=== PATIENT | female | born 1955 | race Caucasian/White ===

== ENCOUNTER 2023-03-23 10:25 | Outpatient (OUT) | payer MEDICARE, OTHER, SELFPAY ==
--- NOTE | 2023-03-23 10:37 | XR_ITS ---
[address] [address] Patient Name: LIONEL STRONG MRN: [id number] date: 1955 Sex: F Assigned Patient Location: RAD Current Patient Location: RAD Accession/Order Number: [id number] Exam Date: 03/23/2023 10:45 Report Date: 03/23/2023 11:08 At the request of: PRACHI GIBSON Procedure: XR DEXA axial skeleton EXAMINATION: XR DEXA axial skeleton HISTORY: Ovarian Failure E28.39 COMPARISON: DEXA bone densitometry 07/04/2012 TECHNIQUE: Dual-energy X-ray absorptiometry (DXA) was performed. FINDINGS: SPINE ANALYSIS: Average bone mineral density is 1.109 g/cm2. T-score (standard deviation relative to young adult mean): -0.6 . -11.3% change since prior study. HIP ANALYSIS: Lowest bone mineral density is within the left femoral neck, 0.593 g/cm2. T-score (standard deviation relative to young adult mean): -3.2 . -18.9% change since prior study. XR/XR DEXA axial skeleton IMPRESSION: [employer] Organization Classification: Osteoporosis - High Fracture Risk Electronically authenticated by: HARPER NAVARRETE Date: 03/23/2023 11:08
== END 2023-03-23 10:26 | disposition home or self-care (01) ==
LOC: RAD 10:29
PROVIDERS: Family Provider Obstetrics & Gynecology; PCP Family Medicine; Visit Provider Nurse Practitioner
DX: E28.39 Other primary ovarian failure (principal); M81.0 Age-related osteoporosis without current pathological fracture
CPT/HCPCS: 77080

== ENCOUNTER 2024-10-04 10:22 | Outpatient (OUT) | payer OTHER, SELFPAY ==
--- OUTSIDE RECORDS SUMMARY | 2024-10-04 10:27 | XMS_ITS | Encounter Summary ---
Author Organization [facility] Address [address] [place] [address] Care Team Providers Care Desktop Publishing Operator Name Role Phone Jeffrey Montes De Oca MD Primary Care Provider Elena Salter MD Unavailable [phone] Encounter Details Date Type Department Care Team (Latest Contact Info) Description 09/29/2024 Travel Social History Tobacco Use Types Packs/Day Years Used Date Smoking Tobacco: Never Smokeless Tobacco: Never Alcohol Use Standard Drinks/Week Comments Yes 0 (1 standard drink = 0.6 oz pur e alcohol) AUDIT-C Answer Date Recorded Q1: How often do you have a drink containing alc ohol? Monthly or less 02/20/2023 Average Number of Drinks Not on file 023 Frequency of Binge Drinking Not on file 02/01 Comments Unknown Sex and Gender Information Value Date Recorded Sex Assigned at Not on file Legal Sex Female 7:05 PM EDT Gender Identity Not on file Sexual Orientation Not on file documented as of this encounter Plan of Treatment Upcoming Encounters Date Type Department Care Team (Late st Contact Info) Description 10/06/2024 8:45 AM EDT Office Visit [facility] [address] [address] Jordi Rodriguez PA [address] [facility] [address] [place] [address] 02/26/2025 9:00 AM EDT Office Visit [facility] [address] [place] [address] Jr. Harley Coles, DO [address] [place] [address] documented as of this encounter Visit Diagnoses Not on filedocumented in this encounter Care Teams Desktop Publishing Operator Relationship Specialty Start Date End Date Jeffrey Montes De Oca MD PCP - General Family Medicine 02/22/23 Elena Salter MD [address] [place] [address] PCP - [facility]oted 06/03/23 documented as of this encounter
--- OUTSIDE RECORDS SUMMARY | 2024-10-04 10:27 | XMS_ITS | Clinical Summary ---
Author Organization [facility] Address [address] [place] [address] Care Team Providers Care Community Relations Manager Name Role Phone Jeffrey Montes De Oca MD Primary Care Provider [phone] Elena Salter MD Unavailable [phone] Allergies No known active allergies Medications escitalopram (Lexapro) 10 MG tablet Take 10 mg by mouth in the morning. Active naproxen sodium (Aleve) 220 MG tablet Take 1 tablet as needed by oral route for 90 days. Active alendronate (Fosamax) 70 MG tablet 04/09/2023 Active acetaminophen (Tylenol 8 Hour) 650 MG ER tablet Take 650 mg by mouth every 8 (eight) hours if needed for mild pain Do not crush, chew, or split. Active Active Problems No known active problems Encounters Date Type Department Care Team Description 09/29/2024 Travel from Last 3 Months Family History Medical History Relation Name Comments Heart disease Father Hypertension Father Heart disease Mother Hypotension Mother Stroke Mother Relation Name Status Comments Father Mother Social History Tobacco Use Types Packs/Day Years Used Date Smoking Tobacco: Never Smokeless Tobacco: Never Tobacco Cessation:Counseling Given: Not Answered Alcohol Use Standard Drinks/Week Comments Yes 0 (1 standard drink = 0.6 oz pur e alcohol) AUDIT-C Answer Date Recorded Q1: How often do you have a drink containing alc ohol? Monthly or less 02/20/2023 Average Number of Drinks Not on file 023 Frequency of Binge Drinking Not on file 10/2 05/2022 Comments Unknown Sex and Gender Information Value Date Recorded Sex Assigned at Not on file Legal Sex Female 7:05 PM EDT Gender Identity Not on file Sexual Orientation Not on file Last Filed Vital Signs Vital Sign Reading Time Taken Comments Blood Pressure - - Pulse - - Temperature - - Respiratory Rate - - Oxygen Saturation - - Inhaled Oxygen Concentration - - Weight 80.7 kg (178 lb) 12/27/2023 9:56 AM EDT Height 162.6 cm (5' 4 ) 12/27/2023 9:56 AM EDT Body Mass Index 30.55 12/27/2023 9:56 AM EDT Plan of Treatment Upcoming Encounters Date Type Department Care Team (Late st Contact Info) Description 10/06/2024 8:45 AM EDT Office Visit [facility] [address] [place] [phone] Jordi Rodriguez, PA [address] [facility] [address] [place] [address] 02/26/2025 9:00 AM EDT Office Visit [facility] [address] [facility] [address] [place] [phone] Jr. Harley Coles, 112 [facility] [address] [place] [address] Health Maintenance Due Date Last Done Comments CT Colonography 1955 FIT-DNA 1955 FIT 1955 FOBT 1955 Medicare Annual Wellness (AWV) 1955 Sigmoidoscopy 1955 Mammogram 1995 Colonoscopy 07/25/2022 07/25/2012 Colorectal Cancer Screening 07/25/2022 Pneumococcal Vaccine: 65+ Years Completed , 01/08/2021 Influenza Vaccine Completed 01/25/2024, , 01/06/2022, Additional history exists Insurance [employer] Care Teams Community Relations Manager Relationship Specialty Start Date End Date Jeffrey Montes De Oca MD PCP - General Family Medicine 02/22/23 Elena Salter MD [address] [place] [address] PCP - [facility]oted 06/03/23
--- NOTE | 2024-10-04 10:30 | XR_ITS ---
[facility] [place] [id number] Patient Name: LIONEL STRONG MRN: [id number] date: 1955 Sex: F Assigned Patient Location: [facility] Current Patient Location: [facility] Accession/Order Number: [id number] Exam Date: 10/04/2024 11:06 Report Date: 10/04/2024 11:08 At the request of: ROYA JOSEPH Procedure: XR knee RT 2V RIGHT KNEE - 2 views COMPARISON: 07/26/2019 and MRI 01/21/2021 CLINICAL DATA: Right knee pain after squatting a couple weeks ago. Weightbearing AP bilateral and right lateral views were obtained. There is osteopenia. No acute fractures or dislocation are noted. There is narrowing of the medial tibiofemoral joint compartments bilaterally with bone to bone contact and mild genu varum deformity. There is marginal spurring at the tibiofemoral compartments on both sides as well as the patellofemoral compartment on the right. There is a trace amount of joint fluid. No soft tissue swelling is seen. XR/XR knee RT 2V IMPRESSION: DEGENERATIVE CHANGES, DESCRIBED. Impression dictated by: Tamra Khalil M.D. 10/04/2024 11:08 AM Dictation Location: [place] [address] Electronically authenticated by: [id number] Y Date: 10/04/2024 11:08
--- OUTSIDE RECORDS SUMMARY | 2024-10-04 10:45 | XMS_ITS | CCD ---
Author Organization [facility] Care Team Providers Care Hot Man Name Role Phone Fatoumata Dougherty Unavailable ELISA ., DR MANDY Armando Admitting Unavailable ELISA ., DR MANDY Armando Attending Unavailable PÉREZ ., DR MANDY Armando Primary Care Unavailable PÉREZ ., DR MANDY Armando Consulting Unavailable ANTHONY, DR WES Perez Consulting Unavailable CELINE ., DR KHAN Consulting Unavailable Leonie Nieves Primary Care Physician [phone] Claudia Daniel Unavailable Jeffrey Montes De Oca MD Primary Care Provider Elena Salter MD Unavailable [phone] ROYA RODRIGUEZ Attending Unavailable ROYA RODRIGUEZ Referring Unavailable ROYA RODRIGUEZ Referring Unavailable ROYA RODRIGUEZ Attending Unavailable ROYA RODRIGUEZ Attending Unavailable ROAY RODRIGUEZ Attending Unavailable Lizbeth, CARI Tate Attending Unavailable Lizbeth, CREOSOTING ENGINEERShady Tate Attending Unavailable Lizbeth, CREOSOTING ENGINEERShady Tate Attending Unavailable Allergies Allergy Classification Reported Allergen(s) Allergy Type Date of Onset Reaction(s) Facility (2 sources) Budesonide / formoterol; Translations: [budesonide-form oterol] Drug Allergy Unknown (qualifier value) [facility] (2 sources) diphenhydrAMINE; Translations: [diphenhydramine ] Drug Allergy Unknown (qualifier value) [facility] (2 sources) HYDROcodone; Translations: [hydrocodone] Drug Allergy Unknown (qualifier value) [facility] Medications Current Medications Medication Drug Class(es) Dates Sig (Normalized) Sig (Original) 8 hr acetaminophen 650 mg extended release oral tablet (10 sources) take 1 tablet by mouth every eight hours as needed for pain acetaminophen (Tylenol 8 Hour) 650 MG ER tablet Take 650 mg by mouth every 8 (eight) hours if needed for mild pain Do not crush, chew, or split. Active alendronic acid 70 mg oral tablet (12 sources) Bisphosphonate Start: 04-09-2023 alendronate (Fosamax) 70 MG tablet 04/09/2023 Active Alendronate Sodi um Active ciprofloxacin 0.003 mg/mg ophthalmic ointment (2 sources) Quinolone Antimicrobial Start: 05-19-2023 Ciloxan 0.3 % 1 application into the lower eyelid of affected eye right eye Twice a day for 7 days May, Active escitalopram 10 mg oral tablet (12 sources) Serotonin Reuptake Inhibitor Start: 02-17-2023 take 1 tablet by mouth once daily escitalopram 10 mg Tab 10 mg = 1 tab(s), Oral, Daily, # 90 tab(s), Refills(s) 3, Pharmacy: [id number], 66.9, cm, 12/29/22 9:58:00 EDT, Height/Length Dosing, 79, kg, 12/29/22 9:58:00 EDT, Weight Dosing Start Date: 02/17/23 Status: Ordered multivitamin with minerals (1 source) Start: 09-07-2022 multivitamin with minerals Refill(s) 0 Start Date: 09/07/22 Status: Ordered naproxen sodium 220 mg oral tablet (14 sources) Nonsteroidal Anti-inflammatory Drug naproxen sodium (Aleve) 220 MG tablet Take 1 tablet as needed by oral route for 90 days. Active Completed/Discontinued Medications Medication Drug Class(es) Dates Sig (Normalized) Sig (Original) amoxicillin 875 mg / clavulanate 125 mg oral tablet (3 sources) Penicillin-class Antibacterial Start: 07-17-2022 take 1 tablet by mouth every twelve hours Amoxicillin-Pot Clavulanate 875-125 MG 1 tablet Orally every 12 hrs for 10 day(s) Jul, Not-Taking/PRN benzonatate 200 mg oral capsule (3 sources) Non-narcotic Antitussive Start: 07-17-2022 take 1 capsule by mouth every eight hours Benzonatate 200 MG 1 capsule Orally Three times a day for 10 days prn cough Jul, Not-Taking/PRN 5 ml bupivacaine hydrochloride 5 mg/ml injection (4 sources) Amide Local Anesthetic Start: 01-13-2024 End: 01-13-2024 bupivacaine PF (Marcaine) 0.5 % injection 1 mL Start: 01-13-2024 End: 01-13-2024 1 mL, Injection, Once PRN Pr ocedure, Starting on Candy 01/13/24 at 1422, For 1 dose 1 ml methylPREDNISolone acetate 40 mg/ml injection (19 sources) Corticosteroid Start: 05-08-2024 End: 05-08-2024 methylPREDNISolone acetate (DEPO-Medrol) injection 40 mg Start: 05-08-2024 End: 05-08-2024 40 mg, Intra-articular, Once PRN Procedure, Starting on Wed05/08/24 at 0922, For 1 dose Start: 05-01-2024 End: 05-01-2024 methylPREDNISolone acetate ( DEPO-Medrol) injection 40 mg Start: 05-01-2024 End: 05-01-2024 40 mg, Intra-articular, Once PRN Procedure, Starting on Wed05/01/24 at 0859, For 1 dose Start: 01-13-2024 End: 01-13-2024 methylPREDNISolone acetate ( DEPO-Medrol) injection 40 mg Start: 01-13-2024 End: 01-13-2024 40 mg, Intra-articular, Once PRN Procedure, Starting on Wed01/13/24 at 1422, For 1 dose Start: 12-27-2023 End: 12-27-2023 methylPREDNISolone acetate ( DEPO-Medrol) injection 40 mg Start: 12-27-2023 End: 12-27-2023 40 mg, Intra-articular, Once PRN Procedure, Starting on Wed12/27/23 at 1024, For 1 dose Start: 07-17-2022 Medrol 4 MG as directed Orally as directed for 6 days Jul, Not-Taking/PRN Problems Active Problems Problem Classification Problem Date Documented Da te Episodic/Chronic Anxiety disorders (2 sources) Anxiety; Translations: [Mixed anxiety and depressive disorder] 12-01-2022 Chronic Inflammation; infection of eye (except that caused by tuberculosis or sexually transmitteddisease) (1 source) Hordeolum internum right lower eyelid Episodic Joint disorders and dislocations; trauma-related (1 source) Derangement of knee 07-16-2022 Chronic Osteoarthritis (12 sources) Arthritis of left knee; Translations: [Unilateral primary osteoarthritis, left knee] 01-13-2024 Chronic Other diseases of kidney and ureters (1 source) Cyst of kidney 09-04-2022 Episodic Other diseases of veins and lymphatics (1 source) Lymphedema 09-04-2022 Chronic Comment on above: secondary to lymph n nodes in groin 2018 Other non-traumatic joint disorders (2 sources) Arthritis of right knee 05-08-2024 Chronic Other non-traumatic joint disorders (10 sources) Pain in left knee; Translations: [Pain in joint, lower leg] 01-13-2024 Episodic Other nutritional; endocrine; and metabolic disorders (1 source) Overweight in adulthood with body mass index of 25 or more but less than 30 09-07-2022 Episodic Other screening for suspected conditions (not mental disorders or infectious disease) (4 sources) Encounter for screening mammogram for malignant neoplasm of breast; Translations: [ENC SCR MAMMO MALIG NEOPLASM BREAST] Onset: 08-17-2022 Episodic Other upper respiratory infections (1 source) Acute sinusitis, unspecified Episodic Residual codes; unclassified (1 source) Family history of malignant neoplasm of breast; Translations: [FAMILY HX MALIG NEOPLASM OF BREAST] Onset: 08-23-2022 Episodic Residual codes; unclassified (1 source) Family history of malignant neoplasm of other organs or systems; Translations: [FAM HX MALIG NEOPLASM OTH ORGN/SYS] Onset: 08-23-2022 Episodic Residual codes; unclassified (1 source) Insomnia 12-01-2022 Episodic Unclassified (1 source) Non-smoker 09-07-2022 Unclassified (2 sources) Acute pain of left knee 05-01-2024 Past or Other Problems Problem Classification Problem Date Documented Da te Episodic/Chronic Calculus of urinary tract (1 source) Kidney stone Onset: 10-31-2020 07-16-2022 Episodic Results Test Name Value Interpretation Reference Range Facility Ambulatory Visit Summaryon 0 09-28-2024 Ambulatory Visit Summary Ambulatory Visit Summary LIONEL SMITH :1955 Visit Date:09/28/2024 Ambulatory Visit Instructions Your Diagnosis Generalized anxiety disorder Mild recurrent major depression BMI 33.0-33.9,adult Non-smoker Your Care Team Attending Physician - Leonie Kaplan Primary Care Physician - Leonie Kaplan This Is Your Medications List alendronate (alendronate 70 mg Tab) alprazolam (Xanax 0.25 mg Tab) busPIRone (busPIRone 10 mg Tab) escitalopram (escitalopram 10 mg Tab) multivitamin with minerals phentermine (Adipex-P 37.5 mg Tab) Procedures Performed Cholecystectomy, Surgery. Discharge Vitals Heart Rate (Peripheral) 80 Respiratory Rate 76 Blood Pressure 136/73 Height 163.0 cm Height 64 in Weight 88.30 kg Weight 194.668 lb BMI 33.23 What to do next Scheduled Follow-Up Appointments 2024 1:20 PM EDT With: Leonie Kaplan Where: [address] [address]- Medications What How Much When Why Instructions New busPIRone (busPIRone 10 mg Tab) 1 Tablets By Mouth 3 times a day as needed for Anxiety Generalized anxiety disorder Mild recurrent major depression BMI 33.0-33.9,adult Non-smoker Pickup at [facility]28 New phentermine (Adipex-P 37.5 mg Tab) 1 Tablets By Mouth Every day Generalized anxiety disorder Mild recurrent major depression BMI 33.0-33.9,adult Non-smoker Pickup at [facility]28 Unchanged alendronate (alendronate 70 mg Tab) See instructions Take 1 tablet by mouth once a week Unchanged alprazolam (Xanax 0.25 mg Tab) 1 Tablets By Mouth At bedtime Anxiety and depression Insomnia Unchanged escitalopram (escitalopram 10 mg Tab) 1 Tablets By Mouth Every day Anxiety and depression Insomnia BMI 29.0-29.9,adult Non-smoker Situational anxiety Unchanged multivitamin with minerals Pharmacy Information [facility]: [address] [phone] Allergies Benadryl (Unknown) HYDROcodone (Unknown) Symbicort (Unknown) Problems Ongoing - Any problem that you are currently receiving treatment for. Anxiety and depression BMI 29.0-29.9,adult Derangement of knee Generalized anxiety disorder Insomnia Jaw pain Lymphedema Major depressive disorder, recurrent episode, moderate Mild recurrent major depression Nephrolithiasis Non-smoker Osteoporosis Renal cyst Shingles Sinusitis Situational anxiety Synovial cyst Patient Survey You may receive a survey via text or e-mail asking about your office visit. Please share your experience with us by completing your survey. We appreciate your feedback and thank you for choosing us for your care. [facility] Family Medicine Office/Clini c Noteon 09-28-2024 Family Medicine Office/Clinic Note Family Medicine Office/Clinic Note HPI Staff Please speak with patient about scheduling an AWVFanta Santos is a 69 year old female presenting for medication refills Follow up for Mental Status: Medication adherence- Yes, takes medication as prescribed Medication refill needed: _ Suicidal thoughts-Not at this time Medication Consent: due Drug screen: due Most recent ZEUS: 14 Most recent PHQ: Dexa: 05/23/22, pt feels her xanax isn't enough anymore, worries often and is on high alert due to having brain cancer. Pt would like to discuss her weight she feels she has gained 25 pounds over the last 3 years. History of Present Illness pt presents today for follow up on worsening anxiety and depression Review of Systems PHQ Score Initial Depression Screen Score: 2 SCORE Physical Exam Vitals & Measurements HR: 80(Peripheral) RR: 76 BP: 136/73 SpO2: 99% HT: 163.0 cm HT: 64 in WT: 194.668 lb WT: 88.30 kg BMI: 33.23 General: alert, no acute distress ENMT: oral mucosa moist, no pharyngeal erythema or exudate Cardiovascular: regular rate and rhythm, normal peripheral perfusion Respiratory: Lungs CTA, respirations non labored Extremities: no deformity, no trauma Neurological: oriented x 4, LOC appropriate for age, CN II-XII intact, motor strength equal & normal bilaterally, speech normal Assessment/Plan 1. Generalized anxiety disorder (F41.1: Generalized anxiety disorder) pt presents today for worsening anxiety and depression. her has brain cancer and she is really struggling with all of the emotions she is dealing with. will increase Lexapro to 20mg and will send in BuSpar for her to use as needed. she did not like how xanax made her feel. she will take 2 of the 10mg tabs since she just picked up 90 10mg tabs. when needing a refill will send in 20mg tabs. RTC 4 weeks for follwoup Ordered: busPIRone, 10 mg = 1 tab(s), Oral, TID, PRN Anxiety, # 30 tab(s), Refills(s) 0, Pharmacy: [facility], 163, cm, 09/28/24 13:00:00 EDT, Height/Length Dosing, 88.3, kg, 09/28/24 13:00:00 EDT, Weight Dosing phentermine, 37.5 mg = 1 tab(s), Oral, Daily, # 30 tab(s), Refills(s) 0, Pharmacy: [facility], 163, cm, 09/28/24 13:00:00 EDT, Height/Length Dosing, 88.3, kg, 09/28/24 13:00:00 EDT, Weight Dosing 2. Mild recurrent major depression (F33.0: Major depressive disorder, recurrent, mild) deferred PQH-9 due to situation. Ordered: busPIRone, 10 mg = 1 tab(s), Oral, TID, PRN Anxiety, # 30 tab(s), Refills(s) 0, Pharmacy: [facility], 163, cm, 09/28/24 13:00:00 EDT, Height/Length Dosing, 88.3, kg, 09/28/24 13:00:00 EDT, Weight Dosing phentermine, 37.5 mg = 1 tab(s), Oral, Daily, # 30 tab(s), Refills(s) 0, Pharmacy: [facility], 163, cm, 09/28/24 13:00:00 EDT, Height/Length Dosing, 88.3, kg, 09/28/24 13:00:00 EDT, Weight Dosing 3. BMI 33.0-33.9,adult (Z68.33: Body mass index [BMI] 33.0-33.9, adult) BMI education. will start Adipex-P. medication agreement signed. OARRS report reviewed. RTC 4 weeks for weight check Ordered: busPIRone, 10 mg = 1 tab(s), Oral, TID, PRN Anxiety, # 30 tab(s), Refills(s) 0, Pharmacy: [facility], 163, cm, 09/28/24 13:00:00 EDT, Height/Length Dosing, 88.3, kg, 09/28/24 13:00:00 EDT, Weight Dosing phentermine, 37.5 mg = 1 tab(s), Oral, Daily, # 30 tab(s), Refills(s) 0, Pharmacy: [facility], 163, cm, 09/28/24 13:00:00 EDT, Height/Length Dosing, 88.3, kg, 09/28/24 13:00:00 EDT, Weight Dosing 4. Non-smoker (Z78.9: Other specified health status) continue not smoking Ordered: busPIRone, 10 mg = 1 tab(s), Oral, TID, PRN Anxiety, # 30 tab(s), Refills(s) 0, Pharmacy: [facility], 163, cm, 09/28/24 13:00:00 EDT, Height/Length Dosing, 88.3, kg, 09/28/24 13:00:00 EDT, Weight Dosing escitalopram, 20 mg = 2 tab(s), Oral, Daily, increase dose to 20mg, # 90 tab(s), Refills(s) 4, Pharmacy: [facility], 163, cm, 07/05/23 11:41:00 EST, Height/Length Dosing, 81.1, kg, 07/05/23 11:41:00 EST, Weight Dosing mupirocin topical, 1 rebecca, Topical, TID, 30 gram, Refill(s) 0, [facility]/pharmacy #[id number], 163, cm, 02/14/24 8:29:00 EDT, Height/Length Dosing, 85.9, kg, 02/14/24 8:29:00 EDT, Weight Dosing phentermine, 37.5 mg = 1 tab(s), Oral, Daily, # 30 tab(s), Refills(s) 0, Pharmacy: [facility], 163, cm, 09/28/24 13:00:00 EDT, Height/Length Dosing, 88.3, kg, 09/28/24 13:00:00 EDT, Weight Dosing Follow-up No qualifying data available Problem List/Past Medical History Ongoing Anxiety and depression BMI 29.0-29.9,adult Derangement of knee Generalized anxiety disorder Insomnia Jaw pain Lymphedema Major depressive disorder, recurrent episode, moderate Mild recurrent major depression Nephrolithiasis Non-smoker Osteoporosis Renal cyst Shingles Sinusitis Situational anxiety Synovial cyst Historical No qualifying data Procedure/Surgical History Cholecystectomy, Surgery. Medications Adipex-P 37.5 mg Tab, 37.5 m (more content not included)... [facility] Comment on above: Result Comment: Elec tronically Signed By: Leonie Kaplan\.br\Date and Time Signed: 09/28/24 14:14 EDT No Panel Informationon 05-08 JAKE Camacho 05/08/2024 9:24 AM L Inj/Asp: R knee on 05/08/2024 9:22 AM Indications: pain Details: 22 G needle, anterolateral approach Medications: 40 mg methylPREDNISolone acetate 40 MG/ML Outcome: tolerated well, no immediate complications E UTILIZING ASEPTIC TECHNIQUE PT GIVEN INJECTION IN RIGHT KNEE, NEUROVASC INTACT S/P INJ, TOLERATED WELL Procedure, treatment alternatives, risks and benefits explained, specific risks discussed. Consent was given by the patient. [facility] No Panel Informationon 05-01 JAKE Camacho 05/01/2024 9:01 AM L Inj/Asp: L knee on 05/01/2024 8:59 AM Indications: pain Details: 22 G needle, anterolateral approach Medications: 40 mg methylPREDNISolone acetate 40 MG/ML Outcome: tolerated well, no immediate complications UTILIZING ASEPTIC TECHNIQUE PT GIVEN INJECTION IN LEFT KNEE, NEUROVASC INTACT S/P INJ, TOLERATED WELL Procedure, treatment alternatives, risks and benefits explained, specific risks discussed. Consent was given by the patient. Patient was prepped and draped in the usual sterile fashion. [facility] Ambulatory Visit Summaryon 1 Ambulatory Visit Summary Ambulatory Visit Summary LIONEL SMITH :1955 Visit Date:02/14/2024 Ambulatory Visit Instructions Your Diagnosis Shingles Jaw pain BMI 32.0-32.9,adult Non-smoker Your Care Team Attending Physician - Leonie Kaplan Primary Care Physician - Leonie Kaplan This Is Your Medications List alendronate (Fosamax 70 mg Tab) escitalopram (escitalopram 10 mg Tab) multivitamin with minerals Procedures Performed Cholecystectomy, Surgery. Discharge Vitals Heart Rate (Peripheral) 66 Respiratory Rate 16 Blood Pressure 160/92 Height 163 cm Height 64 in Weight 85.9 kg Weight 188.98 lb BMI 32.33 Medications What How Much When Why Instructions Unchanged alendronate (Fosamax 70 mg Tab) 1 Tablets By Mouth Every 7 days Osteoporosis Unchanged escitalopram (escitalopram 10 mg Tab) 1 Tablets By Mouth Every day Anxiety and depression Insomnia BMI 29.0-29.9,adult Non-smoker Situational anxiety Unchanged multivitamin with minerals Allergies Benadryl (Unknown) HYDROcodone (Unknown) Symbicort (Unknown) Problems Ongoing - Any problem that you are currently receiving treatment for. Anxiety and depression BMI 29.0-29.9,adult Derangement of knee Insomnia Jaw pain Lymphedema Major depressive disorder, recurrent episode, moderate Nephrolithiasis Non-smoker Osteoporosis Renal cyst Shingles Sinusitis Situational anxiety Synovial cyst Patient Survey You may receive a survey via text or e-mail asking about your office visit. Please share your experience with us by completing your survey. We appreciate your feedback and thank you for choosing us for your care. [facility] Family Medicine Office/Clini c Noteon 02-14-2024 Family Medicine Office/Clinic Note Family Medicine Office/Clinic Note Chief Complaint swelling in jaw HPI Staff complaints of swelling infection on left jaw, lip, upper jaw Onset: 02/12/24 Characteristics: painful, under stress, started small on the chin, started to leak puss last night, also had this happen to her 7 years ago when mother OTC tried: Neosporin antibiotic, History of Present Illness pt presents today with pain left jaw, lip Review of Systems PHQ Score Initial Depression Screen Score: 1 SCORE Physical Exam Vitals & Measurements HR: 66(Peripheral) RR: 16 BP: 160/92 HT: 64 in HT: 163 cm WT: 85.9 kg WT: 188.98 lb BMI: 32.33 General: alert, no acute distress ENMT: oral mucosa moist, no pharyngeal erythema or exudate Cardiovascular: regular rate and rhythm, normal peripheral perfusion Respiratory: Lungs CTA, respirations non labored Extremities: no deformity, no trauma Neurological: oriented x 4, LOC appropriate for age, CN II-XII intact, motor strength equal & normal bilaterally, speech normal Assessment/Plan 1. Shingles (B02.9: Zoster without complications) pt started with a cold sore on lip. now has red swollen area on left lower jaw and open sores that are oozing and painful. will treat for shingles and infection. pt is under a great deal of stress. recently found out her has brain cancer. Ordered: clindamycin, 300 mg = 1 cap(s), Oral, q6hr, X 7 day(s), # 28 cap(s), Refills(s) 0, Pharmacy: [facility]/pharmacy #[id number], 163, cm, 02/14/24 8:29:00 EDT, Height/Length Dosing, 85.9, kg, 02/14/24 8:29:00 EDT, Weight Dosing mupirocin topical, 1 rebecca, Topical, TID, 30 gram, Refill(s) 0, [id number], 163, cm, 02/14/24 8:29:00 EDT, Height/Length Dosing, 85.9, kg, 02/14/24 8:29:00 EDT, Weight Dosing valacyclovir, 1 gm = 1 tab(s), Oral, q8hr, X 7 day(s), # 21 tab(s), Refills(s) 0, Pharmacy: [facility] #[id number], 163, cm, 02/14/24 8:29:00 EDT, Height/Length Dosing, 85.9, kg, 02/14/24 8:29:00 EDT, Weight Dosing 2. Jaw pain (R68.84: Jaw pain) will treat with antibitoic Ordered: clindamycin, 300 mg = 1 cap(s), Oral, q6hr, X 7 day(s), # 28 cap(s), Refills(s) 0, Pharmacy: [facility] #[id number], 163, cm, 02/14/24 8:29:00 EDT, Height/Length Dosing, 85.9, kg, 02/14/24 8:29:00 EDT, Weight Dosing mupirocin topical, 1 rebecca, Topical, TID, 30 gram, Refill(s) 0, [facility]/pharmacy #[id number], 163, cm, 02/14/24 8:29:00 EDT, Height/Length Dosing, 85.9, kg, 02/14/24 8:29:00 EDT, Weight Dosing valacyclovir, 1 gm = 1 tab(s), Oral, q8hr, X 7 day(s), # 21 tab(s), Refills(s) 0, [id number] 163, cm, 02/14/24 8:29:00 EDT, Height/Length Dosing, 85.9, kg, 02/14/24 8:29:00 EDT, Weight Dosing Body Mass Index (BMI) documented 3008F Current tobacco non-user 1036F Depression Screening Negative 3352F Most recent diastolic blood pressure >=90 mm Hg 3080F Most recent systolic blood pressure >= 140 mm Hg 3077F Patient screen for fall risk: no falls in last year or 1 fall with no injury in last year 1101F 3. BMI 32.0-32.9,adult (Z68.32: Body mass index [BMI] 32.0-32.9, adult) BMI education given Ordered: clindamycin, 300 mg = 1 cap(s), Oral, q6hr, X 7 day(s), # 28 cap(s), Refills(s) 0, Pharmacy: [facility]/pharmacy #[id number], 163, cm, 02/14/24 8:29:00 EDT, Height/Length Dosing, 85.9, kg, 02/14/24 8:29:00 EDT, Weight Dosing mupirocin topical, 1 rebecca, Topical, TID, 30 gram, Refill(s) 0, [id number] 163, cm, 02/14/24 8:29:00 EDT, Height/Length Dosing, 85.9, kg, 02/14/24 8:29:00 EDT, Weight Dosing valacyclovir, 1 gm = 1 tab(s), Oral, q8hr, X 7 day(s), # 21 tab(s), Refills(s) 0, [id number], 163, cm, 02/14/24 8:29:00 EDT, Height/Length Dosing, 85.9, kg, 02/14/24 8:29:00 EDT, Weight Dosing Body Mass Index (BMI) documented 3008F Current tobacco non-user 1036F Depression Screening Negative 3352F Most recent diastolic blood pressure >=90 mm Hg 3080F Most recent systolic blood pressure >= 140 mm Hg 3077F Patient screen for fall risk: no falls in last year or 1 fall with no injury in last year 1101F 4. Non-smoker (Z78.9: Other specified health status) continue not smoking Ordered: amoxicillin, 500 mg = 1 cap(s), Oral, q12hr, # 20 cap(s), Refills(s) 0, Pharmacy: [facility], 163, cm, 07/05/23 11:41:00 EST, Height/Length Dosing, 81.1, kg, 07/05/23 11:41:00 EST, Weight Dosing clindamycin, 300 mg = 1 cap(s), Oral, q6hr, X 7 day(s), # 28 cap(s), Refills(s) 0, [id number], 163, cm, 02/14/24 8:29:00 EDT, Height/Length Dosing, 85.9, kg, 02/14/24 8:29:00 EDT, Weight Dosing mupirocin topical, 1 rebecca, Topical, TID, 30 gram, Refill(s) 0, [id number] 163, cm, 02/14/24 8:29:00 EDT, Height/Length Dosing, 85.9, kg, 02/14/24 8:29:00 EDT, Weight Dosing valacyclovir, 1 gm = 1 tab(s), Oral, q8hr, X 7 day(s), # 21 tab(s), Refills(s) 0, [id number], 163, cm, 02/14/24 8:29:00 EDT, Height/Length Dosing, 85.9, kg, 02/14/24 8:29:00 EDT, Weight Dosing Body Mass Index (BMI) documented 3008F Current tobacco (more content not included)... [facility] Comment on above: Result Comment: Elec tronically Signed By: Lizbeth ALCALA, Leonie Tate\.br\Date and Time Signed: 02/14/24 09:08 EDT No Panel Informationon 01-12 JAKE Camacho 01/13/2024 9:54 PM L Inj/Asp: L knee on 01/13/2024 2:22 PM Indications: pain Details: 22 G needle, anterolateral approach Medications: 40 mg methylPREDNISolone acetate 40 MG/ML; 1 mL bupivacaine PF 0.5 % Outcome: tolerated well, no immediate complications UTILIZING ASEPTIC TECHNIQUE PT GIVEN INJECTION IN LEFT KNEE, NEUROVASC INTACT S/P INJ, TOLERATED WELL Procedure, treatment alternatives, risks and benefits explained, specific risks discussed. Consent was given by the patient. [facility] No Panel Informationon 12-26 JAKE Camacho 12/27/2023 10:26 AM L Inj/Asp: R knee on 12/27/2023 10:24 AM Indications: pain Details: 22 G needle, anterolateral approach Medications: 40 mg methylPREDNISolone acetate 40 MG/ML Outcome: tolerated well, no immediate complications E UTILIZING ASEPTIC TECHNIQUE PT GIVEN INJECTION IN RIGHT KNEE, NEUROVASC INTACT S/P INJ, TOLERATED WELL Procedure, treatment alternatives, risks and benefits explained, specific risks discussed. Consent was given by the patient. [facility] CHEMISTRYOrdered By: SYSTEM SYSTEM on 03-03-2023 Albumin [Mass/Vol] 4.7 g/dL Normal 3.3 - 5.0 gm/dL [facility] Albumin/Globulin [Mass ratio] 1.5 {ratio} Normal 1.1 - 2.2 [facility] ALP [Catalytic activity/Vol] 80 [iU]/d Normal 21 - 98 Int._Unit/L [facility] ALT No additional P-5'-P [Catalytic activity/Vol] 19 [iU]/d Normal 6 - 46 Int._Unit/L [facility] Anion gap [Moles/Vol] 13 mmol/L Normal 6 - 16 mEq/L [facility] AST [Catalytic activity/Vol] 22 [iU]/d Normal 5 - 43 Int._Unit/L [facility] Bilirubin [Mass/Vol] 1.6 mg/dL High 0.0 - 1 .1 mg/dL [facility] Calcium [Mass/Vol] 10.2 mg/dL Normal 8.9 - 11. 1 mg/dL [facility] Chloride [Moles/Vol] 104 mmol/L Normal 101 - 1 11 mmol/L [facility] Cholesterol [Mass/Vol] 225 mg/dL High 120 - 200 mg/dL [facility] Cholesterol in HDL [Mass/Vol] 90 mg/dL Invalid Interpretation Code [facility] Comment on above: Interpretive Data: H DL > or equal to 60 mg/dL: Low cardiovascular risk HDL < 40 mg/dL : High cardiovascular risk Cholesterol in LDL [Mass/Vol] 116 mg/dL Normal <=129mg/dL [facility] Cholesterol in VLDL [Mass/Vol] 13 mg/dL Normal 7 - 40 mg/dL [facility] CO2 [Moles/Vol] 29 mmol/L Normal 21 - 31 mmol/L [facility] Creatinine [Mass/Vol] 0.6 mg/dL Normal 0.5 - 1.3 mg/dL [facility] GFR/1.73 sq M.predicted among non-blacks MDRD (S/P/Bld) [Vol rate/Area] 98 mL/min/1.73 m2 Normal >=59mL/min/1 .73 m2 [facility] Comment on above: Interpretive Data: C hronic kidney disease could be indicated at eGFR's of less than 60 mL/min/1.73m2. Kidney failure is indicated at less than 15 mL/min/1.73m2. Globulin (S) [Mass/Vol] 3.1 g/dL Normal 1.4 - 4.0 gm/dL [facility] Glucose [Mass/Vol] 104 mg/dL Normal 55 - 199 mg/dL [facility] Comment on above: Interpretive Data: I f this glucose result represents a fasting glucose, interpretation should refer to the following reference range: 55-99 mg/dL Potassium [Moles/Vol] 5.1 mmol/L Normal 3.5 - 5.3 mmol/L [facility] Protein [Mass/Vol] 7.8 g/dL Normal 6.0 - 7.8 gm/dL [facility] Sodium [Moles/Vol] 141 mmol/L Normal 135 - 145 mmol/L [facility] Triglyceride [Mass/Vol] 65 mg/dL Normal <=149mg/dL [facility] TSH Qn 1.23 m[IU]/L Normal 0.34 - 5.60 mcIU/mL [facility] Urea nitrogen [Mass/Vol] 9 mg/dL Normal 5 - 21 mg/dL [facility] Urea nitrogen/Creatinine [Mass ratio] 15 mg/mg Normal 10 - 20 [facility] HEMATOLOGYOrdered By: SYSTEM SYSTEM on 03-03-2023 Basophils/100 WBC (Bld) 0.8 % Normal 0.0 - 2.0 % [facility] Basophils/Leukocytes Auto (Bld) [Pure # fraction] 0.0 E9/L Normal 0.0 - 0.2 E9/L [facility]Auto[facility] Eosinophils/100 WBC (Bld) 1.3 % Normal 0.0 - 8.0 % [facility]Auto[facility] Eosinophils/Leukocyte s Auto (Bld) [Pure # fraction] 0.1 E9/L Normal 0.0 - 0.5 E9/L [facility] Lymphocytes/100 WBC (Bld) 35.8 % Normal 14.0 - 50.0 % [facility]eAuto[facility] Lymphocytes/Leukocyte s Auto (Bld) [Pure # fraction] 2.3 E9/L Normal 1.0 - 4.0 E9/L [facility]eAutoSS Monocytes/100 WBC (Bld) 6.7 % Normal 4.0 - 14.0 % [facility]eAutoSS Monocytes/Leukocytes Auto (Bld) [Pure # fraction] 0.4 E9/L Normal 0.2 - 1.0 E9/L [facility] Neutrophils/100 WBC (Bld) 55.4 % Normal 36.0 - 75.0 % [facility] Neutrophils/Leukocyte s Auto (Bld) [Pure # fraction] 3.5 E9/L Normal 2.0 - 7.5 E9/L [facility] HEMATOLOGYOrdered By: Ward Banegas on 03-03-2023 Erythrocyte distribution width (RBC) [Ratio] 13.6 % Normal 10.9 - 14.2 % [facility] Hematocrit (Bld) [Volume fraction] 45.9 % Normal 34.0 - 46.0 % [facility] Hemoglobin (Bld) [Mass/Vol] 15.3 g/dL Normal 12.0 - 16.0 gm/dL [facility] MCH (RBC) [Entitic mass] 30.2 pg Normal 27.0 - 34.0 pg [facility] MCHC (RBC) [Mass/Vol] 33.2 g/dL Normal 31.4 - 36.0 gm/dL [facility] MCV (RBC) [Entitic vol] 90.9 fL Normal 80.0 - 100.0 fL [facility] Platelet mean volume (Bld) [Entitic vol] 9.1 fL Normal 6.4 - 10.8 fL [facility] Platelets (Bld) [#/Vol] 262.0 E9/L Normal 150.0 - 500.0 E9/L [facility] RBC (Bld) [#/Vol] 5.0 E12/L Normal 4.3 - 5.9 E12/L [facility] WBC corrected for nucl RBC Auto (Bld) [#/Vol] 6.3 E9/L Normal 4.0 - 11.0 E9/L [facility] MG MAMM SCREEN 3D BELIA CADon 08-17-2022 MG MAMM SCREEN 3D BELIA CAD Patient: LIONEL SMITH Exam Date: 08/17/2022 : 1955 Gender:F Ordering : DR MANDY PÉREZ . Admission #: [id number] Family : Order #: [id number] CLICK HERE TO VIEW EXAM RADIOLOGY REPORT PROCEDURE: MAMMOGRAM SCREENING 3D BILATERAL CAD COMPARISON: MG MAMM SCREEN 3D BELIA CAD, 11/27/2020. MG MAMM SCREEN BELIA W CAD, 09/16/2018. INDICATIONS: Screening mammography Calculator Name NCI Breast Cancer Risk Assessment Tool 5 Year Breast Cancer Risk 1.50% Lifetime Breast Cancer Risk 5.20% Personal Breast Cancer No Personal Ovarian Cancer No Treatments None Family Cancers Grandmother-maternal with breast cancer at age 66; Brother with pancreatic cancer at age 60. LOCATION: [facility] BREAST COMPOSITION: Heterogeneously dense,which may obscure small masses. FINDINGS: DIAGNOSTIC CATEGORY 2--BENIGN FINDING. NO CHANGE FROM COMPARISON. Scattered benign-appearing nodules are present. Scattered benign-appearing calcifications are present. Scattered benign-appearing lymph nodes are present. RIGHT BREAST: No significant suspicious finding. LEFT BREAST: No significant suspicious finding. RECOMMENDATIONS: ROUTINE MAMMOGRAM AND CLINICAL EVALUATION IN 12 MONTHS. PLEASE NOTE: A NORMAL MAMMOGRAM DOES NOT EXCLUDE THE POSSIBILITY OF BREAST CANCER. A CLINICALLY SUSPICIOUS PALPABLE LUMP SHOULD BE BIOPSIED. Dictated by: Wes Barcenas MD on 08/17/2022 at 15:44 Approved by: Wes Barcenas MD on 08/17/2022 at 15:46 Normal [facility] Vital Signs Date Time Vital Sign Value Performing Clinician Facility 12-27-2023 09:56-0400 Body height 162.6 cm oRya JOSEPH Work Phone: [facility] 12-27-2023 09:56-0400 Body mass index (BMI) [Ratio] 30.55 kg/m2 Roya JOSEPH Work Phone: [facility] 12-27-2023 09:56-0400 Body weight 80.74 kg Roya JOSEPH Work Phone: [facility] 05-19-2023 17:50-0500 Body height 162.56 cm Fatoumata Dougherty Other [facility] Other 05-19-2023 17:50-0500 Body mass index (BMI) [Ratio] 28.01 kg/m2 Fatoumata Dougherty Other [facility] Other 05-19-2023 17:50-0500 Body temperature 96.8 [degF] Fatoumata Dougherty Other [facility] Other 05-19-2023 17:50-0500 Body weight 74.03 kg Fatoumata Dougherty Other [facility] Other 05-19-2023 17:50-0500 Diastolic blood pressure 71 mm[Hg] Fatoumata Dougherty Other [facility] Other 05-19-2023 17:50-0500 Respiratory rate 20 /min Fatoumata Dougherty Other [facility] Other 05-19-2023 17:50-0500 SaO2% (BldA) [Mass fraction] 99 % Fatoumata Dougherty Other [facility] Other 05-19-2023 17:50-0500 Systolic blood pressure 167 mm[Hg] Fatoumata Dougherty Other [facility] Other 07-17-2022 10:55-0400 Body temperature 97.7 [degF] Fatoumata Dougherty Other [facility] Other 07-17-2022 10:55-0400 Body weight 75.75 kg Fatoumata Dougherty Other [facility] Other 07-17-2022 10:55-0400 Diastolic blood pressure 75 mm[Hg] Fatoumata Dougherty Other [facility] Other 07-17-2022 10:55-0400 SaO2% (BldA) [Mass fraction] 98 % Fatoumata Dougherty Other [facility] Other 07-17-2022 10:55-0400 Systolic blood pressure 173 mm[Hg] Fatoumata Dougherty Other [facility] Other Encounters Encounter Date Encounter Type Care Provider Facility Start: 10-26-2024 ambulatory CREOSOTING ENGINEER Leonie L Lizbeth Facil ity:[facility] Start: 09-28-2024 End: 09-28-2024 ambulatory CREOSOTING ENGINEER Leonie L Lizbeth Facility:[facility] Rake ana Start: 05-08-2024 End: 05-08-2024 ambulatory ROYA RODRIGUEZ Not Available Start: 05-08-2024 End: 05-08-2024 Patient encounter procedure Roya JOSEPH Work Phone: [facility] Comment on above: Acute pain of right knee (Primary Dx); Arthritis of right knee Start: 05-01-2024 End: 05-01-2024 Bamboo flowsheet Roya JOSEPH Work Phone: [facility] Start: 05-01-2024 End: 05-01-2024 Bamboo flowsheet Roya Rodriguez PA Work Phone: [facility] Start: 05-01-2024 End: 05-01-2024 Office outpatient visit 25 minutes Roya Rodriguez PA Work Phone: [facility] Comment on above: Acute pain of left k nee (Primary Dx); Arthritis of left knee Start: 05-01-2024 End: 05-01-2024 ambulatory ROYA RODRIGUEZ Not Available Start: 02-14-2024 End: 02-14-2024 ambulatory CREOSOTING ENGINEER Leonie Nieves Facility:[facility] Start: 01-13-2024 End: 01-13-2024 Bamboo flowsheet Roya Rodriguez PA Work Phone: [facility] Start: 01-13-2024 End: 01-13-2024 Bamboo flowsheet Roya Rodriguez PA Work Phone: [facility] Start: 01-13-2024 End: 01-13-2024 Office outpatient visit 25 minutes Roya JOSEPH Work Phone: [facility] Comment on above: Acute pain of left k nee (Primary Dx); Arthritis of left knee Start: 01-13-2024 End: 01-13-2024 ambulatory ROYA RODRIGUEZ Not Available Start: 12-27-2023 End: 12-27-2023 Bamboo flowsheet Roya Rodriguez PA Work Phone: [facility] Start: 12-27-2023 End: 12-27-2023 Bamboo flowsheet Roya Rodriguez PA Work Phone: [facility] Start: 12-27-2023 End: 12-27-2023 Office outpatient visit 25 minutes Roya JOSEPH Work Phone: [facility] Comment on above: Acute pain of right knee (Primary Dx); Acute pain of left knee; Arthritis of right knee; Arthritis of left knee Start: 12-27-2023 End: 12-27-2023 ambulatory ROYA RODRIGUEZ Not Available Start: 05-20-2023 End: 05-20-2023 ambulatory Claudia Daniel Other [facility] Other Start: 05-20-2023 Telephone encounter Claudia Daniel [facility] Start: 05-19-2023 End: 05-19-2023 ambulatory Fatoumata Dougherty Other [facility] Other Start: 05-19-2023 Office outpatient vi sit 15 minutes Fatoumata Dougherty [facility] Start: 03-03-2023 End: 03-03-2023 Lab Drop off Leonie Nieves [facility] Start: 08-17-2022 End: 08-18-[address] MANDY PÉREZ . Facility: Start: 07-17-2022 End: 07-17-2022 ambulatory Fatoumata Dougherty Other [facility] Other Start: 07-17-2022 Office outpatient ne w 20 minutes Fatoumata Dougherty [facility] Procedures Date Procedure Procedure Detail Performing Clinician Start: 05-08-2024 Arthrocentesis aspir &/inj major jt/bursa w/o us Roya JOSEPH Work Phone: Start: 05-01-2024 Arthrocentesis aspir &/inj major jt/bursa w/o us Roya JOSEPH Work Phone: Start: 01-13-2024 Arthrocentesis aspir &/inj major jt/bursa w/o us Roya JOSEPH Work Phone: Start: 12-27-2023 Arthrocentesis aspir &/inj major jt/bursa w/o us Roya JOSEPH Work Phone: Cholecystectomy Leonie Nieves Surgical procedure Leonie magallon Plan of Treatment Date Care Activity Detail Author Start: 02-26-2025 End: 02-26-2025 Patient encounter procedure 02/26/2025 9:00 AM EDT Office Visit [facility] [address] [place] [phone] Jr. Harley Coles DO [address] [facility] [address] [place] [address] [facility] Start: 05-01-2024 End: 05-01-2024 Patient encounter procedure 05/01/2024 8:30 AM EST Office Visit [facility] [address] [place] [phone] Roya Rodriguez, PA [address] [facility] [address] [place] [address] Acute pain of left knee (Primary Dx); Arthritis of left knee; Acute pain of right knee; Arthritis of right knee [facility] Comment on above: Acute pain of left k nee (Primary Dx); Arthritis of left knee; Acute pain of right knee; Arthritis of right knee Start: 01-13-2024 End: 01-13-2024 Patient encounter procedure 01/13/2024 1:45 PM EDT Office Visit [facility] [address] [place] [id number] Roya Rodriguez, PA [address] [facility] [address] [place] [address] Arrived [facility] Comment on above: Arrived Start: 01-02-2024 Influenza vaccination Influenza Vacc ine (#1) [facility] Start: 12-27-2023 End: 12-27-2023 Patient encounter procedure 12/27/2023 9:45 AM EDT Office Visit [facility] [address] [place] [phone] Roya Rodriguez, PA [address] [facility] [address] [place] [address] Acute pain of right knee (Primary Dx); Acute pain of left knee [facility] Comment on above: Acute pain of right knee (Primary Dx); Acute pain of left knee Start: 1995 Screening for malign ant neoplasm of breast Mammogram [facility] Start: 1955 Medicare Annual Wellness (AWV) Medicare Annual Wellness (AWV) [facility] Start: 1955 Screening for malign ant neoplasm of colon [facility] XR Knee - left 1 or 2 Views XR knee 1 or 2 views left Imaging Routine Acute pain of left knee 12/27/2023 9:59 AM EDT [facility] XR Knee - right 1 or 2 Views XR knee 1 or 2 views right Imaging Routine Acute pain of right knee 12/27/2023 9:58 AM EDT [facility] Work Phone: Immunizations Immunization Date Immunization Notes Care Provider Fa cili 01-13-2023 influenza virus vacc ine, unspecified formulation [employer] [facility] 01-19-2022 SARS-CoV-2 (COVID-19 ) [id number] [employer] [facility] 01-06-2022 influenza virus vacc ine, unspecified formulation Cabe na Mala [facility] 01-06-2022 pneumococcal polysaccharide vaccine, 23 valent [employer] [facility] 10-14-2021 SARS-CoV-2 mRNA ([id number] ) vaccine Leonie Lizbeth [facility] 02-14-2021 SARS-CoV-2 (COVID-19 ) mRNA BNT-162b2 vax Leonie [employer] [facility] Comment on above: Result Comment: 2022: [id number] 01-08-2021 influenza virus vacc ine, unspecified formulation Leonie Lizbeth [facility] 01-08-2021 pneumococcal conjuga te vaccine, 13 valent Leonie Lizbeth [facility] 07-30-2020 SARS-CoV-2 (COVID-19 ) mRNA BNT-162b2 vax Leonie Lizbeth [facility] 07-08-2020 SARS-CoV-2 (COVID-19 ) mRNA BNT-162e5 vax Leonie Lizbeth [facility] 03-10-2020 influenza virus vacc ine, unspecified formulation Leonie Lizbeth [facility] 02-04-2019 influenza virus vacc ine, unspecified formulation Leonie Lizbeth [facility] 02-28-2018 influenza virus vacc ine, unspecified formulation Leonie Lizbeth [facility] Payers Date Payer Category Payer Medicare (Managed Care) [employer] [facility] [id number] 2023 Unknown [employer] [id number] 2023-Present [address] [place] [phone] [id number] 2023 Unknown [id number] 2020 Medicare MEDICARE MEDICAR E RAILROAD [id number] 2020-Present [employer] ALEX RAILRO[employer] MEDICARE [address] [address] [place] [address] Medicare [id number] 1959 Medicare [id number] 1959 Private Health Insurance [id number] 1955 Unknown [id number]. [id number] 1955 Unknown [id number] [id number]. 2.1259 1955 Unknown [id number] [id number]. 2.1259 1955 Unknown [id number] [id number]. 2.1259 1955 Unknown [id number] [id number]. 2.1259 1955 Unknown [id number] [id number]. 2.1259 1955 Unknown [id number] [id number]. 2.1259 1955 Unknown [id number] [id number]. 2.727 1955 Unknown [id number]. [id number] 1955 Unknown [id number] [id number]. 2.727 Social History Date Type Detail Facility Start: 02-20-2023 End: 05-01-[address] [facility] Start: 02-20-2023 End: 03-03-2023 Tobacco smoking status [facility] Start: 02-20-2023 Tobacco use and exposure Smokeless tobacco non-user [facility] Start: 12-27-2023 End: 05-08-2024 Alcoholic beverage intake Current drinker of alcohol (finding) [facility] Start: 02-20-2023 End: 05-01-2024 History of Social function [facility] How often to you hav e a drink containing alcohol? Monthly or less [facility] Start: 1955 Sex assigned at Not on file [facility] Clinical Notes 07-17-2022 to 05-08-2024 JAKE Camacho - 05/08/2024 9:15 AM JAKE Burciaga - 05/01/2024 8:30 AM JAKE Burciaga - 01/13/2024 1:45 PM EDTMattJAKE Robles - 12/27/2023 9:45 AM EDT Note Date & Type Note Facility 05-08-2024 History of Presen t illness Narrative Associated Order(s): L Inj/Asp: R knee Post-Procedure Diagnose(s): Arthritis of right knee Images from the original note were not included. Orthopedic Office note: NAME: Lionel Smith : 1955 History of Present Illness The patient presents for an injection in her right knee due to a history of right knee arthritis. She recently received an injection in her left knee, which was successful. She is leaving for [place] at the end of the month and presents today for an injection as an ancillary visit for her being seen. The pain in her right knee is mostly medial, moderate, and worsens with activity. She reports excellent pain relief in the left knee. She is not experiencing any fever or chills. She also reports no numbness or tingling. Physical Exam Knee Musculoskeletal Exam Gait Limp: right Inspection Leg length disparity: no discrepancy Right Erythema: none Effusion: mild Edema: mild Edema comment: history of lymphedema. Ecchymosis: none Deformity: none Alignment: varus Palpation Right Right knee palpation is unremarkable. Increased warmth: none Masses: none Crepitus: patellofemoral and medial Tenderness: present Medial joint line: moderate Patella: mild Range of Motion Right Right knee range of motion is normal and full. Strength Right Right knee strength is normal. Extension: 5/5. Extension is affected by pain. Flexion: 5/5. Flexion is affected by pain. Instability Right Instability signs: none - stable Anterior drawer: normal Neurovascular Right Right knee neurovascular exam is normal. Pulses - PT: normal Posterior tibial: 2+ Capillary refill: warm and well-perfused Special Signs Right Right knee special signs are normal. Patellar apprehension: none General Constitutional: appears stated age Labored breathing: no Psychiatric: normal mood and affect Neurological: alert Skin: intact Lymphadenopathy: none Orders Placed This Encounter Procedures L Inj/Asp This order was created via procedure documentation L Inj/Asp: R knee on 05/08/2024 9:22 AM Indications: pain Details: 22 G needle, anterolateral approach Medications: 40 mg methylPREDNISolone acetate 40 MG/ML Outcome: tolerated well, no immediate complications E UTILIZING ASEPTIC TECHNIQUE PT GIVEN INJECTION IN RIGHT KNEE, NEUROVASC INTACT S/P INJ, TOLERATED WELL Procedure, treatment alternatives, risks and benefits explained, specific risks discussed. Consent was given by the patient. Results Assessment & Plan 1. Right knee arthritis. She presents today for a previously discussed injection in the right knee, motivated by current weather conditions and imminent travel plans. She reports moderate pain in the medial knee, which worsens with activity. There is no fever, chills, numbness, or tingling. She has had excellent pain relief in the left knee following a previous injection. She declines the thought of surgical intervention at this time. Follow-up The patient will follow up as needed. PROCEDURE The patient recently received an injection in the left knee, which provided excellent pain relief. ICD-10-CM 1. Acute pain of right knee M25.561 2. Arthritis of right knee M17.11 Visit was preformed using [email or web address] washer speech recognition. documented in this encounter [facility] 05-01-2024 History of Presen t illness Narrative Associated Order(s): L Inj/Asp: L knee Post-Procedure Diagnose(s): Arthritis of left knee; Acute pain of left knee Images from the original note were not included. HISTORY OF PRESENT ILLNESS: EST PT Lionel Smith is an 68 y.o. @ female. (EST PT) RECHECK (L) KNEE ; S/P CORTISONE INJ 01/13/24 (15WKS 4DAYS) [place] 2024 DEPENDING ON HUSBANDS MRI (DX BRAIN CA - FINISHED TX 04/25/24) XRAYS B/L KNEES 12/27/23 IN EPIC S/P (L) KNEE CORTISONE INJ 01/13/24 PREVIOUS (L) KNEE SCOPE ~2001 - DR COLES NOTES GOOD RELIEF CORTISONE INJECTION BUT STATES WITHIN THE PAST FEW MONTHS THE BAKERS CYST IN HER (L) KNEE HAS BEEN REALLY BOTHERING HER. PAIN IS POSTERIOR - NOTES SWELLING ; WORSENS THROUGHOUT THE DAY. NOTES LIMITED ROM / STIFFNESS - DIFFICULTY GETTING IN / OUT OF A CAR. USES LYMPHEDEMA LEG PUMPS BID ; ELEVATES. TAKING TYLENOL ARTHRITIS - WITH RELIEF. ALLERGIES: No Known Allergies HOME MEDICATIONS: Current Outpatient Medications Medication Instructions acetaminophen (TYLENOL 8 HOUR) 650 mg, Oral, Every 8 hours PRN, Do not crush, chew, or split. alendronate (Fosamax) 70 MG tablet escitalopram (LEXAPRO) 10 mg, Oral, Daily naproxen sodium (Aleve) 220 MG tablet Take 1 tablet as needed by oral route for 90 days. PHYSICAL EXAM: Knee Musculoskeletal Exam Gait Antalgic: left Inspection Leg length disparity: no discrepancy Right Edema: mild Left Erythema: none Effusion: mild Edema: mild Ecchymosis: none Deformity: none Alignment: varus Palpation Left Left knee palpation is unremarkable. Increased warmth: none Masses: none Crepitus: patellofemoral and medial Tenderness: present Medial joint line: moderate Patella: mild Palpation additional comments: + pain posterior knee, neg hohmans. No prominent pulsations for mass. Range of Motion Left Left knee range of motion is normal and full. Active extension: 5 Passive extension: 5 Active flexion: 100 Passive flexion: 105 Strength Left Left knee strength is normal. Extension: 5/5. Extension is affected by pain. Flexion: 5/5. Flexion is affected by pain. Instability Left Instability signs: none - stable Anterior drawer: normal Neurovascular Left Left knee neurovascular exam is normal. Pulses - PT: normal Posterior tibial: 2+ Capillary refill: warm and well-perfused Special Signs Left Left knee special signs are normal. General Constitutional: appears stated age Labored breathing: no Psychiatric: normal mood and affect Neurological: alert Skin: intact Lymphadenopathy: none Vitals: There is no height or weight on file to calculate BMI. Tobacco Use: Low Risk (05/01/2024) Patient History Smoking Tobacco Use: Never Smokeless Tobacco Use: Never Passive Exposure: Not on file Alcohol Use: Unknown (02/20/2023) AUDIT-C Frequency of Alcohol Consumption: Monthly or less Average Number of Drinks: Not on file Frequency of Binge Drinking: Not on file IMAGING: L Inj/Asp: L knee on 05/01/2024 8:59 AM Indications: pain Details: 22 G needle, anterolateral approach Medications: 40 mg methylPREDNISolone acetate 40 MG/ML Outcome: tolerated well, no immediate complications UTILIZING ASEPTIC TECHNIQUE PT GIVEN INJECTION IN LEFT KNEE, NEUROVASC INTACT S/P INJ, TOLERATED WELL Procedure, treatment alternatives, risks and benefits explained, specific risks discussed. Consent was given by the patient. Patient was prepped and draped in the usual sterile fashion. Orders Placed This Encounter Procedures L Inj/Asp This order was created via procedure documentation ASSESSMENT: ICD-10-CM 1. Acute pain of left knee M25.562 2. Arthritis of left knee M17.12 Assessment & Plan 1. Left knee pain. She has a history of left knee arthritis and got excellent relief with previous injection, requesting repeat injection today. Right knee is doing okay. She is modifying activities, recently got through a busy holiday season. She has plans to go to [place] in May pending her 's health. Pt functioning too well for TKA. Questions answered in laymen terms at the bedside. The diagnosis, home exercise plan and any ongoing restrictions/ recommendations reviewed. If unable to be reached in office, I recommend evaluation at nearest Emergency Room if any symptoms worsened or new symptoms develop for requiring urgent evaluation. documented in this encounter [facility] 01-13-2024 History of Presen t illness Narrative Associated Order(s): L Inj/Asp: L knee Post-Procedure Diagnose(s): Arthritis of left knee Images from the original note were not included. HISTORY OF PRESENT ILLNESS: EST PT Lionel Smith is an 68 y.o. @ female. (EST PT) RECHECK (L) KNEE ; HERE TO DISCUSS CORTISONE INJ - LEAVING FOR [place] IN MAY 2024 S/P (R) KNEE CORTISONE INJ 12/27/23 XRAYS B/L KNEES 12/27/23 IN EPIC PREVIOUS (L) KNEE SCOPE ~2001 - DR COLES NOTES GREAT RELIEF FROM (R) KNEE CORTISONE INJECTION THAT SHE WOULD LIKE ONE IN HER (L) KNEE ; PAIN IS DIFFUSE - WORSE AFTER TAKING A TRIP TO [employer]. NOTES INTERMITTENT DISCOMFORT WITH ACTIVITY / MOVEMENT ; PAIN IS DIFFUSE. NOTES GOOD ROM - SOME TIGHTNESS ; DENIES ANY INSTABILITY / WEAKNESS. CONTINUES TO HAVE SWELLING / LYMPHEDEMIA - USES LEG PUMPS BID ; ELEVATES. TAKING TYLENOL ARTHRITIS - WITH RELIEF. PT PRESENTS WITH EMOTION SUPPORT DOG (IN TRAINING) TODAY IN THE OFFICE ALLERGIES: No Known Allergies HOME MEDICATIONS: Current Outpatient Medications Medication Instructions acetaminophen (TYLENOL 8 HOUR) 650 mg, Oral, Every 8 hours PRN, Do not crush, chew, or split. alendronate (Fosamax) 70 MG tablet escitalopram (LEXAPRO) 10 mg, Oral, Daily naproxen sodium (Aleve) 220 MG tablet Take 1 tablet as needed by oral route for 90 days. PHYSICAL EXAM: Knee Musculoskeletal Exam Gait Antalgic: left Inspection Leg length disparity: no discrepancy Left Erythema: none Effusion: mild Edema: mild Edema comment: non pitting lymphedema Ecchymosis: none Deformity: none Alignment: varus Palpation Left Left knee palpation is unremarkable. Increased warmth: none Masses: none Crepitus: patellofemoral and medial Tenderness: present Medial joint line: moderate Patella: mild Range of Motion Left Left knee range of motion is normal and full. Strength Left Left knee strength is normal. Extension: 5/5. Extension is affected by pain. Flexion: 5/5. Flexion is affected by pain. Instability Left Instability signs: none - stable Anterior drawer: normal Neurovascular Left Left knee neurovascular exam is normal. Pulses - PT: normal Posterior tibial: 2+ Capillary refill: warm and well-perfused Special Signs Left Left knee special signs are normal. General Constitutional: appears stated age Labored breathing: no Psychiatric: normal mood and affect Neurological: alert Skin: intact Lymphadenopathy: none Vitals: There is no height or weight on file to calculate BMI. Tobacco Use: Low Risk (01/13/2024) Patient History Smoking Tobacco Use: Never Smokeless Tobacco Use: Never Passive Exposure: Not on file Alcohol Use: Unknown (02/20/2023) AUDIT-C Frequency of Alcohol Consumption: Monthly or less Average Number of Drinks: Not on file Frequency of Binge Drinking: Not on file IMAGING: L Inj/Asp: L knee on 01/13/2024 2:22 PM Indications: pain Details: 22 G needle, anterolateral approach Medications: 40 mg methylPREDNISolone acetate 40 MG/ML; 1 mL bupivacaine PF 0.5 % Outcome: tolerated well, no immediate complications UTILIZING ASEPTIC TECHNIQUE PT GIVEN INJECTION IN LEFT KNEE, NEUROVASC INTACT S/P INJ, TOLERATED WELL Procedure, treatment alternatives, risks and benefits explained, specific risks discussed. Consent was given by the patient. Orders Placed This Encounter Procedures L Inj/Asp: L knee This order was created via procedure documentation ASSESSMENT: ICD-10-CM 1. Acute pain of left knee M25.562 2. Arthritis of left knee M17.12 L Inj/Asp: L knee PLAN: Pt pleased with relief in right knee injection.. requesting injection in left knee. We discussed AAOS guidlines for initial treatment of symptomatic osteoarthritis: We have recommended Self-Management programs for strengthening, low-impact aerobic exercises, and physical activity maintenance and modifications to symptom tolerance. Questions answered in laymen terms at the bedside. The diagnosis, home exercise plan and any ongoing restrictions/ recommendations reviewed. If unable to be reached in office, I recommend evaluation at nearest Emergency Room if any symptoms worsened or new symptoms develop for requiring urgent evaluation. documented in this encounter [facility] 12-27-2023 History of Presen t illness Narrative Associated Order(s): L Inj/Asp: R knee Post-Procedure Diagnose(s): Arthritis of right knee; Acute pain of right knee Images from the original note were not included. HISTORY OF PRESENT ILLNESS: EST PT Lionel Smith is an 68 y.o. @ female. (EST PT ; LAST APPT W/ STEPANIC) RECHECK (R) KNEE ; S/P CORTISONE INJ 04/05/23 (~9 MONTHS) XRAYS B/L KNEES DONE TODAY, 8/26/24 IN EPIC MRI 01/21/21 @ [facility] S/P CORTISONE INJ 04/05/23, 04/21/22, 02/24/21 PREVIOUS LYMPHEDEMIA CLINIC @ [facility] [place] ([facility]) NOTES GREAT RELIEF FROM CORTISONE INJECTION ; STATES SYMPTOMS RETURNED WITHIN THE PAST 1 MONTH - WORSE AFTER TAKING A TRIP TO [employer]. NOTES INTERMITTENT DISCOMFORT WITH ACTIVITY / MOVEMENT ; PAIN IS ANTERIOR / MEDIAL. NOTES GOOD ROM ; RARE INSTABILITY / WEAKNESS. CONTINUES TO HAVE SWELLING / LYMPHEDEMIA - USES LEG PUMPS BID ; ELEVATES. TAKING TYLENOL ARTHRITIS - WITH RELIEF. NOTES SIMILAR SYMPTOMS WITH (L) KNEE - SOME INCREASED SWELLING. PREVIOUS (L) KNEE SCOPE ~2001 - DR COLES ALLERGIES: No Known Allergies HOME MEDICATIONS: Current Outpatient Medications Medication Instructions acetaminophen (TYLENOL 8 HOUR) 650 mg, Oral, Every 8 hours PRN, Do not crush, chew, or split. alendronate (Fosamax) 70 MG tablet escitalopram (LEXAPRO) 10 mg, Oral, Daily naproxen sodium (Aleve) 220 MG tablet Take 1 tablet as needed by oral route for 90 days. PHYSICAL EXAM: Knee Musculoskeletal Exam Gait Antalgic: right and left Inspection Leg length disparity: no discrepancy Right Erythema: none Effusion: mild Edema: moderate Ecchymosis: none Deformity: none Alignment: varus Left Erythema: none Effusion: mild Edema: moderate Ecchymosis: none Deformity: none Alignment: varus Inspection additional comments: History of lymphedema, well controlled. Palpation Right Right knee palpation is unremarkable. Increased warmth: none Masses: none Crepitus: patellofemoral and medial Tenderness: present Medial joint line: moderate Patella: mild Left Left knee palpation is unremarkable. Increased warmth: none Masses: none Crepitus: patellofemoral and medial Tenderness: present Medial joint line: moderate Patella: mild Range of Motion Right Right knee range of motion is normal and full. Left Left knee range of motion is normal and full. Strength Right Right knee strength is normal. Extension: 5/5. Flexion: 5/5. Left Left knee strength is normal. Extension: 5/5. Flexion: 5/5. Instability Right Instability signs: none - stable Anterior drawer: normal Left Instability signs: none - stable Anterior drawer: normal Neurovascular Right Right knee neurovascular exam is normal. Pulses - PT: normal Posterior tibial: 2+ Capillary refill: warm and well-perfused Left Left knee neurovascular exam is normal. Pulses - PT: normal Posterior tibial: 2+ Capillary refill: warm and well-perfused Special Signs Right Right knee special signs are normal. Patellar apprehension: none Left Left knee special signs are normal. General Constitutional: appears stated age Labored breathing: no Psychiatric: normal mood and affect Neurological: alert Skin: intact Lymphadenopathy: none Vitals: Body mass index is 30.55 kg/m . Tobacco Use: Low Risk (12/27/2023) Patient History Smoking Tobacco Use: Never Smokeless Tobacco Use: Never Passive Exposure: Not on file Alcohol Use: Unknown (02/20/2023) AUDIT-C Frequency of Alcohol Consumption: Monthly or less Average Number of Drinks: Not on file Frequency of Binge Drinking: Not on file IMAGING: L Inj/Asp: R knee on 12/27/2023 10:24 AM Indications: pain Details: 22 G needle, anterolateral approach Medications: 40 mg methylPREDNISolone acetate 40 MG/ML Outcome: tolerated well, no immediate complications E UTILIZING ASEPTIC TECHNIQUE PT GIVEN INJECTION IN RIGHT KNEE, NEUROVASC INTACT S/P INJ, TOLERATED WELL Procedure, treatment alternatives, risks and benefits explained, specific risks discussed. Consent was given by the patient. Orders Placed This Encounter Procedures XR knee 1 or 2 views right Order Specific Question: Reason for exam: Answer: PAIN XR knee 1 or 2 views left Order Specific Question: Reason for exam: Answer: PAIN ASSESSMENT: ICD-10-CM 1. Acute pain of right knee M25.561 XR knee 1 or 2 views right 2. Acute pain of left knee M25.562 XR knee 1 or 2 views left 3. Arthritis of right knee M17.11 4. Arthritis of left knee M17.12 PLAN: Xrays discussed.. pt had recent OA flare with travels. No calf pain. + walking and steps.. Pt functioning too well to consider TKA.. pt requesting injection.. pt thankful. Will call when ready for another injury before leaving to [place]. Questions answered in laymen terms at the bedside. The diagnosis, home exercise plan and any ongoing restrictions/ recommendations reviewed. If unable to be reached in office, I recommend evaluation at nearest Emergency Room if any symptoms worsened or new symptoms develop for requiring urgent evaluation. documented in this encounter [facility] 05-19-2023 Evaluation note Encounter Date Diagnosis Assessment Notes May, Hordeolum internum right lower eyelid (ICD-10 - H00.022) Drink plenty fluids, get plenty of rest. Continue home medications. Stop the erythromycin eye ointment and begin the cephalexin ointment, use as directed. Apply warm compresses to your eye. Follow-up with your eye doctor if no improvement in 2 to 3 days [facility] [employer] Other 03-17-2023 Evaluation note* Encounter Date Diagnosis Assessment Notes Treatment Notes Treatment Clinical Notes Jul, Acute sinusitis, recurrence not specified, unspecified location (ICD-10 - J01.90) Sinusitis home care material was printed Drink plenty fluids, get plenty of rest. Take the amoxicillin with clavulanate and Medrol Dosepak as prescribed until gone. Use the Tessalon Perles as prescribed as needed for cough. Follow-up with your family physician if no improvement in 2 to 3 days. [place] [facility] Other Evaluation + Plan note No data available for this section [facility] [employer] Other Evaluation note* Diagnosis Acute pain of left knee- Primary Arthritis of left knee documented in this encounter [facility]* Diagnosis Acute pain of right knee- Primary Acute pain of left knee Arthritis of right knee Arthritis of left knee documented in this encounter [facility]* Diagnosis Acute pain of left knee- Primary Arthritis of left knee documented in this encounter [facility]* Diagnosis Acute pain of right knee- Primary Arthritis of right knee [facility] N[facility] - Reported* Type Description Date Surgical History gallbladder [place] [facility] Other Hospital Discharge instructions No data available for this section [facility] No data available for this section [facility] Summary Purpose Family History No Family History Records Found No data available for this section No Family History Records FoundNo Family History Records Found Advance Directives No Advanced Directives Records FoundNo Advanced Directives Records FoundNo Advanced Directives Records Found Reason for Referral Specialty Diagnoses / Procedures Referred By Contac t Referred To Contact Orthopaedic Surgery Diagnoses Acute pain of right knee Arthritis of right knee Procedures L Inj/Asp: R knee Roya Rodriguez PA [address] [facility] [address] [place] [address] Referral ID Status Reason Start Date Expiration Date V isits Requested Visits Authorized [id number] Authorized 12/27/2023 06/24/2024 1 1 Specialty Diagnoses / Procedures Referred By Contac t Referred To Contact Orthopaedic Surgery Diagnoses Arthritis of left knee Procedures L Inj/Asp: L knee Roya Rodriguez PA [address] [facility] [address] [place] [address] Referral ID Status Reason Start Date Expiration Date V isits Requested Visits Authorized [id number] Authorized 01/13/2024 07/11/2024 1 1 Additional Source Comments REASON FOR VISIT (unrecogniz ed section and content) Reason Comments Pain INFORMATION SOURCE (unrecogn ized section and content) DATE CREATED AUTHOR 08/23/2022 [facility] DATE CREATED AUTHOR AUTHOR'S ORGANIZ ATION 05/14/2024 [facility] EPIC DATE CREATED AUTHOR AUTHOR'S ORGANIZ ATION 09/30/2024 [facility] Patient Care team informatio n (unrecognized section and content) Hot Man Relationship Specialty Start Date End Date Jeffrey Montes De Oca MD PCP - General Family Medicine 02/22/23 Elena Salter MD [address] [place] [id number] PCP - [facility] 06/03/23 Hot Man Relationship Specialty Start Date End Date Jeffrey Montes De Oca MD PCP - General Family Medicine 02/22/23 Elena Salter MD [address] [place] [address] PCP - [facility] 06/03/23 Hot Man Relationship Specialty Start Date End Date Jeffrey Montes De Oca MD PCP - General Family Medicine 02/22/23 Elena Salter MD [address] [facility] [place] [address] PCP - [facility]oted 06/03/23 Hot Man Relationship Specialty Start Date End Date Jeffrey Montes De Oca MD PCP - General Family Medicine 02/22/23 Elena Salter MD [address] [facility] [place] [address] PCP - [facility] 06/03/23 Hot Man Relationship Specialty Start Date End Date Jeffrey Montes De Oca MD PCP - General Family Medicine 02/22/23 Elena Salter MD [address] [place] [address] PCP - [facility] 06/03/23 Hot Man Relationship Specialty Start Date End Date Jeffrey Montes De Oca MD PCP - General Family Medicine 02/22/23 Elena Salter MD [address] [place] [address] PCP - [facility] 06/03/23 FOR RECORDS PERTAINING TO PATIENTS WHO ARE OR HAVE BEEN ENROLLED IN A CHEMICAL DEPENDENCY/SUBSTANCEABUSE PROGRAM, SOME INFORMATION MAY BE OMITTED. This clinical summary was aggregated from multiple sources. Caution should be exercised in using it in the provision of clinical care. This summary normalizes information from multiple sources, and as a consequence, information in this document may materially change the coding, format and clinical context of patient data. In addition, data may be omitted in some cases. CLINICAL DECISIONS SHOULD BE BASED ON THE PRIMARY CLINICAL RECORDS. [facility] [employer] [facility]. provides no warranty or guarantee of the accuracy or completeness of information in this document.
== END 2024-10-04 10:23 | disposition home or self-care (01) ==
LOC: RAD 10:26
PROVIDERS: Family Provider Obstetrics & Gynecology; PCP Family Medicine; Visit Provider Personal Emergency Response Attendant
DX: M25.561 Pain in right knee (principal); M17.11 Unilateral primary osteoarthritis, right knee
CPT/HCPCS: 73560

== ENCOUNTER 2024-10-18 12:58 | Outpatient (OUT) | payer OTHER, SELFPAY ==
--- OUTSIDE RECORDS SUMMARY | 2024-10-06 08:45 | XMS_ITS | Encounter Summary ---
Author Organization [facility] Address [address] [place] [address] Care Team Providers Care Fabric Lay Out Worker Name Role Phone Jeffrey Montes De Oca MD Primary Care Provider [phone] Elena Salter MD Unavailable [phone] Reason for Referral * Clinic-Administered Medication (Routine) - Closed Specialty Diagnoses / Procedures Referred By Omaira fair Referred To Contact Orthopaedic Surgery Diagnoses Arthritis of right knee Procedures L Inj/Asp: R knee Jordi Rodriguez PA [address] [address] Phone: tel: fax: Referral ID Status Reason Start Date Expiration Date Visits Re quested Visits Authorized [id number] Closed 10/06/2024 04/04/2025 1 1 Reason for Visit * Reason Comments Pain Encounter Details Date Type Department Care Team (Late st Contact Info) Description 10/06/2024 8:45 AM EDT Office Visit [facility] [address] [place] [address] Jordi Rodriguez PA [address] [facility] [address] [place] [address] Arthritis of right knee (Primary Dx); Acute pain of right knee Social History Tobacco Use Types Packs/Day Years [...] on file documented as of this encounter Progress Notes * JAKE Camacho - 10/06/2024 8:45 AM EDTAssociated Order(s): L Inj/Asp: R knee Post-Procedure Diagnose(s): Arthritis of right knee Images from the original note were not included. Orthopedic Office note: NAME: Danielle Smith : 1955 EST PT RECHECK RT KNEE- S/P CORTISONE INJ 05/08/24 XRAY RT KNEE [facility] 10/04/24 (CALLED TO PUSH IMAGES) XRAY B/L KNEE 12/27/23 EPIC CORTISONE INJ 05/08/24 INCREASE PAIN RIGHT KNEE FOR PAST MONTH. NO INJURY. FELT SOMETHING IN HER KNEE GETTING UP OUT OF A CHAIR. PAIN BEEN WAXING AND WANEING SINCE. WORSE WITH WEIGHT BEARING AND EVENING, DENIES N/T. PAIN MOSTLY MEDIAL, BUT WITH JOINT SWELLING CAN BE ALL OVER. DENIES FALL. DENIES HIP PAIN. Knee Musculoskeletal Exam Gait Antalgic: right Inspection Leg length disparity: no discrepancy Right Erythema: none Effusion: mild Edema: moderate Edema comment: LYMPHEDEMA- CONTROLLED Ecchymosis: none Deformity: none Alignment: varus Palpation Right Right knee palpation is unremarkable. Increased warmth: none Masses: none Crepitus: patellofemoral and medial Tenderness: present Medial joint line: moderate Patella: mild Range of Motion Right Right knee range of motion is normal and full. Right knee active extension: 7. Passive extension: 5 Active flexion: 110 Passive flexion: 115 Strength Right Right knee strength is normal. [...] This order was created via procedure documentation XR knee 1 or 2 views right Standing Status: Future Expected Date: 10/02/2024 Expiration Date: 10/02/2025 Scheduling Instructions: XRAY WB B/L KNEE AND LATERAL RT KNEE @ [facility]- PLEASE PUSH IMAGES TO [facility] PLEASE Reason for exam:: RT KNEE PAIN L Inj/Asp: R knee on 10/06/2024 8:50 AM Indications: pain Details: 22 G needle, anterolateral approach Medications: 40 mg methylPREDNISolone acetate 40 MG/ML; 1 mL bupivacaine PF 0.5 % Outcome: tolerated well, no immediate complications E UTILIZING ASEPTIC TECHNIQUE PT GIVEN INJECTION IN RIGHT KNEE, NEUROVASC INTACT S/P INJ, TOLERATEDWELL Procedure, treatment alternatives, risks and benefits explained, specific risks discussed. Consent was given by the patient. Results Xray [facility] 10/04/24: - Imaging: - X-rays from [place] reviewed showing significant bone on bone articulation medial joint line, noevidence of fracture Weightbearing AP bilateral and right lateral views were obtained. There is osteopenia. No acute fractures or dislocation are noted. There is narrowing of the medial tibiofemoral joint compartments bilaterally with bone to bone contact and mild genu varum deformity. There is marginal spurring at the tibiofemoral compartments on both sides as well as the patellofemoral compartment on the right. There is a trace amount of joint fluid. No soft tissue swelling is seen. ICD-10-CM 1. Arthritis of right knee M17.11 2. Acute pain of right knee M25.561 XR knee 1 or 2 views right Assessment & Plan Right knee arthritis. X-rays from [place] reviewed showing significant [id number] articulation at the medial joint line with no evidence of fracture. Surgical and nonsurgical treatment options were discussed. She is caring for her spouse who has terminal brain cancer. Treatment plan: A cortisone injection was discussed for symptomatic treatment. She is recommended to use a cane to normalize her gait with a heel-to-toe steppage discussed. Clinical decision making: She will follow up on an as-needed basis as she is caring for her spouse pending the need for reevaluation. She is not ready for knee replacement surgery within the next 3 months. Follow-up: The patient is thankful. Questions answered in laymen terms at the bedside. The diagnosis, home exercise plan and any ongoing restrictions/ recommendations reviewed. If unable to be reached in office, I recommend evaluation at nearest Emergency Room if any symptoms worsened or new symptoms develop for requiring urgent evaluation. Visit was preformed using [email or web address] speech recognition. documented in this encounter Plan of Treatment Upcoming Encounters Date Type Department Care Team (Late st Contact Info) Description 02/26/2025 9:00 AM EDT Office Visit [facility] [address] [place] [address] Jr. Harley Coles, DO [address] [facility] [address] [place] [address] Scheduled Orders Name Type Priority Associated Diagnoses Orde r Schedule XR knee 1 or 2 views right Imaging Routine Acute pain of right knee Expected: 10/02/2024 (Approximate), Expires: 10/02/2025 documented as of this encounter Procedures Procedure Name Priority Date/Time Associated Diagnosis Comments GA ARTHROCENTESIS ASPIR&/INJ MAJOR JT/BURSA W/O US Routine 10/06/2024 8:50 AM EDT Arthritis of right knee documented in this encounter Results * GA ARTHROCENTESIS ASPIR&/INJ MAJOR JT/BURSA W/O US (10/06/2024 8:50 AM EDT) Narrative Jordi Rodriguez PA - 10/06/2024 8:50 AM EDT JAKE Camacho 10/06/2024 8:57 AM L Inj/Asp: R knee on 10/06/2024 8:50 AM Indications: pain Details: 22 G needle, anterolateral approach Medications: 40 mg methylPREDNISolone acetate 40 MG/ML; 1 mL bupivacaine PF 0.5 % Outcome: tolerated well, no immediate complications E UTILIZING ASEPTIC TECHNIQUE PT GIVEN INJECTION IN RIGHT KNEE, NEUROVASC INTACT S/P INJ, TOLERATED WELL Procedure, treatment alternatives, risks and benefits explained, specific risks discussed. Consent was given by the patient. us Jordi JOSEPH IN CLINIC/BEDSIDE ORDERABLES Final Result documented in this encounter Visit Diagnoses Diagnosis Arthritis of right knee- Primary Acute pain of right knee documented in this encounter Administered Medications Inactive Administered Medications - up to 3 most recent administrations Medication Order MAR Action Action Date Dose Rate Site bupivacaine PF (Marcaine) 0.5 % injection 1 mL 1 mL, Injection, Once PRN Procedure, Starting on Wed10/06/24 at 0850, For 1 doseIndications:Arthritis of right knee Given 10/06/2024 8:50 AM EDT 1 mL methylPREDNISolone acetate (DEPO-Medrol) injection 40 mg 40 mg, Intra-articular, Once PRN Procedure, Starting on Wed10/06/24 at 0850, For 1 doseIndications:Arthritis of right knee Given 10/06/2024 8:50 AM EDT 40 mg documented in this encounter Care Teams Fabric Lay Out Worker Relationship Specialty Start Date End Date Jeffrey Montes De Oca MD PCP - General Family Medicine 02/22/23 Elena Salter MD [address] [place] [address] PCP - [facility]oted 06/03/23 documented as of this encounter
--- NOTE | 2024-10-18 13:02 | MM_ITS ---
Patient Name: LIONEL STRONG MR#: [id number] : 1955 Exam Date: 10/18/2024 Ordering Doctor: PRACHI GIBSON . RADIOLOGY REPORT PROCEDURE: MM TOMOSYNTHESIS SCREENING BI COMPARISON: MG MAMM SCREEN 3D BELIA CAD, 08/17/2022. MG MAMM SCREEN 3D BELIA CAD, 11/27/2020. MG MAMM SCREEN BELIA W CAD, 09/16/2018. MG MAMM BELIA SCRN W CAD DIG, 11/15/2015. INDICATIONS: Screening mammogram Calculator Name NCI Breast Cancer Risk Assessment Tool 5 Year Breast Cancer Risk 1.50% Lifetime Breast Cancer Risk 4.80% Personal Breast Cancer No Personal Ovarian Cancer No Treatments None Family Cancers Grandmother-maternal with breast cancer at age ~66; Brother with pancreatic cancer at age ~60. LOCATION: [facility] BREAST COMPOSITION: The breasts are heterogeneously dense,which may obscure small masses. FINDINGS: DIAGNOSTIC CATEGORY 1--NEGATIVE. RIGHT BREAST: No significant suspicious finding. LEFT BREAST: No significant suspicious finding. RECOMMENDATIONS: ROUTINE MAMMOGRAM AND CLINICAL EVALUATION IN 12 MONTHS. PLEASE NOTE: A NORMAL MAMMOGRAM DOES NOT EXCLUDE THE POSSIBILITY OF BREAST CANCER. A CLINICALLY SUSPICIOUS PALPABLE LUMP SHOULD BE BIOPSIED. Dictated by: Brandon Mitchell DO on 10/18/2024 at 16:40 Approved by: Brandon Mitchell DO on 10/18/2024 at 16:42
--- OUTSIDE RECORDS SUMMARY | 2024-10-18 13:03 | XMS_ITS | Encounter Summary ---
Author Organization [facility] Address [address] [place] [place] [address] Care Team Providers Care Pan Shaker Name Role Phone Dima Perez MD Primary Care Provider Elena Salter MD Unavailable [phone] Encounter Details Date Type Department Care Team (Late Contact Info) Description 10/04/2024 Clinisync Result Encounter [facility] External Department Unsolicited Roya Rodriguez, PA [address] [facility] [address] [place] [address] Social History Tobacco Use Types Packs/Day Years [...] Office Visit [facility] [address] [facility] [address] [place] [phone] Jr. Harley Coles, DO [address] [address] documented as of this encounter Procedures Procedure Name Priority Date/Time Associated Diagnosis Comments XR KNEE 1-2 VIEWS RIGHT 10/04/2024 11:08 AM EDT documented in this encounter Results * XR knee 1 or 2 views right (10/04/2024 11:08 AM EDT) Anatomical Region Laterality Modality Lower Extremities, Knee Right [facility] 10/04/2024 11:0 8 AM EDT Narrative 10/04/2024 11:11 AM EDT The [address] [address] XRay Report Signed Patient: LIONEL STRONG MR#: [id number] : 1955 Acct:[id number] Age/Sex: 69 / F ADM Date: 10/04/24 Loc: RAD Attending Dr: Roya JOSEPH Ordering Physician: Roya Rodriguez Date of Service: 10/04/24 Procedure(s): XR knee RT 2V Accession Number(s): [id number] cc: Roya Rodriguez; DIMA PEREZ The [address] [id number] Patient Name: LIONEL STRONG MRN: [id number] date: 1955 Sex: F Assigned Patient Location: RAD Current Patient Location: RAD Accession/Order Number: [id number] Exam Date: 10/04/2024 11:06 Report Date: 10/04/2024 11:08 At the request of: ROYA JOSEPH Procedure: XR knee RT 2V RIGHT KNEE - 2 views COMPARISON: 07/26/2019 and MRI 01/21/2021 CLINICAL DATA: Right knee pain after squatting a couple weeks ago. Weightbearing AP bilateral and right lateral views [...] fluid. No soft tissue swelling is seen. XR/XR knee RT 2V IMPRESSION: DEGENERATIVE CHANGES, DESCRIBED. Impression dictated by: Tamra Khalil M.D. 10/04/2024 11:08 AM Dictation Location: [place] [address] Electronically authenticated by: [id number] Y Date: 10/04/2024 11:08 Dictated By: Tamra Khalil M.D. Signed By: 10/04/24 1111 DD/ 1108 TD/TT: Support Director: Procedure Note Radiology, Radiologist, MD - 10/04/2024 [place] [address] XRay Report Signed Patient: LIONEL STRONG AMR#: [id number] : 1955cct:[id number] Age/Sex: 69 / FADM Date: 10/04/24 Loc: RAD Attending Dr: Roya JOSEPH Ordering Physician: Roya Rodriguez Date of Service: 10/04/24 Procedure(s): XR knee RT 2V Accession Number(s): [id number] cc: Roya Rodriguez; DIMA PEREZ The [place] [id number] Patient Name: LIONEL STRONG MRN: [id number] date: 1955 Sex: F Assigned Patient Location: [facility] Current Patient Location: RAD Accession/Order Number: [id number] Exam Date: 10/04/2024 11:06 Report Date: 10/04/2024 11:08 At the request of: ROYA JOSEPH Procedure: XR knee RT 2V RIGHT KNEE - 2 views COMPARISON: 07/26/2019 and MRI 01/21/2021 CLINICAL DATA: Right knee pain after squatting a couple weeks ago. Weightbearing AP bilateral and right lateral views were obtained. Thereis osteopenia. No acute fractures or dislocation are noted. There isnarrowing of the medial tibiofemoral joint compartments bilaterally with bone tobone contact and mild genu varum deformity. There is marginal spurring at the tibiofemoral compartments on both sides as well as the patellofemoral compartment on the right. There is a trace amount of joint fluid. Nosoft tissue swelling is seen. XR/XR knee RT 2V IMPRESSION: DEGENERATIVE CHANGES, DESCRIBED. Impression dictated by: Tamra Khalil M.D. 10/04/2024 11:08 AM Dictation Location: [place] [address] Electronically authenticated by: [id number] Y Date: 1:08 Dictated By: Tamra Khalil M.D. Signed By:10/04/24 1111 DD/ 1108 TD/TT: Support Director: us Roya JOSEPH IMG XR PROCEDURES Final Resul t documented in this encounter Visit Diagnoses Not on filedocumented in this encounter Care Teams Pan Shaker Relationship Specialty Start Date End Date Dima Perez MD PCP - General Family Medicine 02/22/23 Elena Salter MD [address] [place] [address] PCP - [facility]oted 06/03/23 documented as of this encounter
--- OUTSIDE RECORDS SUMMARY | 2024-10-18 13:03 | XMS_ITS | Clinical Summary ---
Author Organization [facility] Address [address] [place] [address] Care Team Providers Care Cytology Teacher Name Role Phone Dima Perez MD Primary Care Provider [phone] Elena Salter MD Unavailable [phone] Allergies No known active allergies Medications [...] Do not crush, chew, or split. Active Hospital, Clinic, or Other Facility Administered Medication Ordered Dose Route Frequency Start Date End Date Status bupivacaine PF (Marcaine) 0.5 % injection 1 mLIndications:Arthri tis of right knee 1 mL IJ Once PRN Procedure 10/06/2024 10/06/2024 Ended methylPREDNISolone acetate (DEPO-Medrol) injection 40 mgIndications:Arthri tis of right knee 40 mg IX Once PRN Procedure 10/06/2024 10/06/2024 Ended Active Problems No known active problems Encounters Date Type Department Care Team Description 10/06/2024 8:45 AM EDT Office Visit [facility] [address] [place] [address] Roya Rodriguez, PA Arthritis of right knee (Primary Dx); Acute pain of right knee 10/06/2024 Bamboo flowsheet [facility] [address] [address] Roya Rodriguez PA 10/06/2024 Travel 10/04/2024 Results Follow-Up [facility] [address] [address] Roya Rodriguez PA 10/04/2024 Clinisync Result Encounter [facility] External Department Unsolicited Roya Rodriguez PA 09/29/2024 Travel from Last 3 Months Family [...] Office Visit [facility] [address] [place] [address] Jr. Harley Coles, DO 112 [facility] [address] [place] [address] Health Maintenance Due Date Last Done Comments CT Colonography 1955 FIT-DNA 1955 FIT 1955 FOBT 1955 Medicare Annual Wellness (AWV) 1955 Sigmoidoscopy 1955 Mammogram 1995 Colonoscopy 07/25/2022 07/25/2012 Colorectal Cancer Screening 07/25/2022 Pneumococcal Vaccine: 65+ Years Completed , 01/08/2021 Influenza Vaccine Completed 01/25/2024, , 01/06/2022, Additional history exists Procedures Procedure Name Priority Date/Time Associated Diagnosis Comments MO ARTHROCENTESIS ASPIR&/INJ MAJOR JT/BURSA W/O US Routine 10/06/2024 8:50 AM EDT Arthritis of right knee XR KNEE 1-2 VIEWS RIGHT 10/05/19 11:08 AM EDT from Last 3 Months Results * MO ARTHROCENTESIS ASPIR&/INJ MAJOR JT/BURSA W/O US (10/06/2024 8:50 AM EDT) Narrative Roya Rodriguez PA - 10/06/2024 8:50 AM EDT [...] Consent was given by the patient. us Roya JOSEPH IN CLINIC/BEDSIDE ORDERABLES Final Result * XR knee 1 or 2 views right (10/04/2024 11:08 AM EDT) Anatomical Region Laterality Modality Lower Extremities, Knee Right Radiogra phic Imaging 10/04/2024 11:0 8 AM EDT Narrative 10/04/2024 11:[place] [address] XRay Report Signed Patient: LIONEL STRONG MR#: [id number] : 1955 Acct:[id number] Age/Sex: 69 / F ADM Date: 10/04/24 Loc: RAD Attending Dr: Roya JOSEPH Ordering Physician: Roya Rodriguez Date of Service: 10/04/24 Procedure(s): XR knee RT 2V Accession Number(s): [id number] cc: Roya Rodriguez; DIMA PEREZ The [place] [address] Patient Name: LIONEL STRONG MRN: [id number] date: 1955 Sex: F Assigned Patient Location: [facility] Current Patient Location: [facility] Accession/Order Number: [id number] Exam Date: 10/04/2024 11:06 Report Date: 10/04/2024 [...] Khalil M.D. 10/04/2024 11:08 AM Dictation Location: [place] [address] Electronically authenticated by: [id number] Y Date: 10/04/2024 11:08 Dictated By: Tamra Khalil M.D. Signed By: 10/04/[address] [place] [address]/ 1108 TD/TT: Liner Man: Procedure Note Radiology, Radiologist, MD - 10/04/2024 [place] [address] XRay Report Signed Patient: LIONEL STRONG AMR#: [id number] : 1955cct:[id number] Age/Sex: 69 / FADM Date: 10/04/24 Loc: RAD Attending Dr: Roya JOSEPH Ordering Physician: Roya Rodriguez Date of Service: 10/04/24 Procedure(s): XR knee RT 2V Accession Number(s): [id number] cc: Roya Rodriguez; DIMA PEREZ The [place] [address] Patient Name: LIONEL STRONG MRN: [id number] date: 1955 Sex: F Assigned Patient Location: [facility] Current Patient Location: [facility] Accession/Order Number: [id number] Exam Date: 10/04/2024 11:06 Report Date: 10/04/2024 [...] Khalil M.D. 10/04/2024 11:08 AM Dictation Location: [place] [address] Electronically authenticated by: [id number] Y Date: 6/04/236126:08 Dictated By: Tamra Khalil M.D. Signed By:10/04/24 1111 DD/ 1108 TD/TT: Liner Man: us Roya JOSEPH IMG XR PROCEDURES Final Resul t from Last 3 [place] [id number] Care Teams Cytology Teacher Relationship Specialty Start Date End Date Dima Perez MD PCP - General Family Medicine 02/22/23 Elena Salter MD [address] [place] [address] PCP - [facility]oted 06/03/23
--- OUTSIDE RECORDS SUMMARY | 2024-10-18 13:03 | XMS_ITS | Encounter Summary ---
Author Organization [facility] Address [address] [place] [address] Care Team Providers Care Construction Safety Consultant Name Role Phone Jeffrey Montes De Oca MD Primary Care Provider [phone] Elena Salter MD Unavailable [phone] Encounter Details Date Type Department Care Team (Late Contact Info) Description 10/06/2024 Bamboo flowsheet [facility] [address] [phone] Jordi Rodriguez PA [address] [facility] [address] [place] [address] Social History Tobacco Use Types Packs/Day Years [...] Encounters Date Type Department Care Team (Late Contact Info) Description 02/26/2025 9:00 AM EDT Office Visit [facility] [address] [place] [address] Jr. Harley Coles, DO [address] [place] [address] documented as of this encounter Visit Diagnoses Not on filedocumented in this encounter Care Teams Construction Safety Consultant Relationship Specialty Start Date End Date Jeffrey Montes De Oca MD PCP - General Family Medicine 02/22/23 Elena Salter MD [address] [place], [place] [address] PCP - [facility]oted 06/03/23 documented as of this encounter
--- OUTSIDE RECORDS SUMMARY | 2024-10-18 13:03 | XMS_ITS | Encounter Summary ---
Author Organization [facility] Address [address] [facility] [place] [address] Care Team Providers Care Registry Np Name Role Phone Jeffrey Montes De Oca MD Primary Care Provider Elena Salter MD Unavailable [phone] Encounter Details Date Type Department Care Team (Late st Contact Info) Description 02/20/2023 Abstract [facility] [address] [facility] [address] [place] [address] Jr. Harley Coles, DO 112 [facility] [address] [place] [address] Social History Tobacco Use Types Packs/Day Years [...] on file documented as of this encounter Functional Status documented as of this encounter Plan of Treatment Upcoming Encounters Date Type Department Care Team (Late st Contact Info) Description 02/26/2025 9:00 AM EDT Office Visit [facility] [address] [place] [address] Jr. Harley Coles, DO 112 [facility] [address] [place] [address] documented as of this encounter Visit Diagnoses Not on filedocumented in this encounter Care Teams Registry Np Relationship Specialty Start Date End Date Jeffrey Montes De Oca MD PCP - General Family Medicine 02/22/23 Elena Salter MD [address] [place] [address] PCP - [facility]oted 06/03/23 documented as of this encounter
--- OUTSIDE RECORDS SUMMARY | 2024-10-18 13:03 | XMS_ITS | Encounter Summary ---
Author Organization [facility] Address [address] [place] [address] Care Team Providers Care Fuels Sales Representative Name Role Phone Jeffrey Montes De Oca MD Primary Care Provider Elena Salter MD Unavailable [phone] Encounter Details Date Type Department Care Team (Late Contact Info) Description 10/04/2024 Results Follow-Up [facility] [address] [place] [phone] Jordi Rodriguez PA [address] [facility] [address] [place] [address] Social History Tobacco Use Types Packs/Day Years [...] [facility] [address] [place] [address] Jr. Harley Coles, DO [address] [facility] [address] [place] [address] documented as of this encounter Visit Diagnoses Not on filedocumented in this encounter Care Teams Fuels Sales Representative Relationship Specialty Start Date End Date Jeffrey Montes De Oca MD PCP - General Family Medicine 02/22/23 Elena Salter MD [address] [place] [address] PCP - [facility]oted 06/03/23 documented as of this encounter
--- OUTSIDE RECORDS SUMMARY | 2024-10-18 13:03 | XMS_ITS | Encounter Summary ---
Author Organization [facility] Address [address] [place] [address] Care Team Providers Care Foam Fabricator Name Role Phone Jeffrey Montes De Oca MD Primary Care Provider [phone] Elena Salter MD Unavailable [phone] Encounter Details Date Type Department Care Team (Latest Contact Info) Description 10/06/2024 Travel Social History Tobacco Use Types Packs/Day [...] [address] [place] [address] Jr. Harley Coles, DO [address] [facility] [address] [place] [address] documented as of this encounter Visit Diagnoses Not on filedocumented in this encounter Care Teams Foam Fabricator Relationship Specialty Start Date End Date Jeffrey Montes De Oca MD PCP - General Family Medicine 02/22/23 Elena Salter MD [address] [place] [address] PCP - [facility]oted 06/03/23 documented as of this encounter
== END 2024-10-18 12:59 | disposition home or self-care (01) ==
LOC: MAMMO 12:58
PROVIDERS: Family Provider Obstetrics & Gynecology; PCP Family Medicine; Visit Provider Nurse Practitioner
DX: Z12.31 Encounter for screening mammogram for malignant neoplasm of breast (principal); Z80.3 Family history of malignant neoplasm of breast; Z80.8 Family history of malignant neoplasm of other organs or systems
CPT/HCPCS: 77063; 77067

== ENCOUNTER 2025-01-13 09:32 | Emergency (ER) | payer OTHER, SELFPAY ==
[2025-01-13 09:37] VITALS: BP 168/78; PULSE 75; TEMP 36.5; O2SAT 99; BMI 30.6
--- OUTSIDE RECORDS SUMMARY | 2025-01-13 09:41 | XMS_ITS | CCD ---
Author Organization [facility] CliniSyal Care Team Providers Care Ribbon Weaver Name Role Phone Fatoumata Dougherty Unavailable ELISA ., DR MANDY Armando Admitting Unavailable PÉREZ ., DR MANDY Armando Attending Unavailable PÉREZ ., DR MANDY Armando Primary Care Unavailable PÉREZ ., DR MANDY Armando Consulting Unavailable WEST, DR WES Perez Consulting Unavailable CELINE ., DR KHAN Consulting Unavailable Lizbeth, Leonie L Primary Care Physician [phone] Claudia Daniel Unavailable Dima Perez MD Primary Care Provider [phone] Elena Salter MD Unavailable ROYA RODRIGUEZ Attending Unavailable ROYA RODRIGUEZ Attending Unavailable ROYA RODRIGUEZ Referring Unavailable RYOA RODRIGUEZ Referring Unavailable ROYA RODRIGUEZ Attending Unavailable RODRIGUEZ, ROYA Zapata Attending Unavailable RODRIGUEZ, ROYA Zapata Attending Unavailable Lizbeth, BLOOM CONVEYOR OPERATOR Leonie L Attending Unavailable Lizbeth, BLOOM CONVEYOR OPERATOR Leonie L Attending Unavailable Lizbeth, BLOOM CONVEYOR OPERATOR Leonie L Attending Unavailable Lizbeth, BLOOM CONVEYOR OPERATOR Leonie L Attending Unavailable Lizbeth, BLOOM CONVEYOR OPERATOR Leonie L Attending Unavailable JUAN FRANCISCO PALOMINO Attending Unavailable Lizbeth, BLOOM CONVEYOR OPERATOR Leonie L Attending Unavailable Allergies Allergy Classification Reported Allergen(s) Allergy Type Date of Onset Reaction(s) Facility (2 sources) Budesonide / formoterol; Translations: [budesonide-form oterol] Drug Allergy Unknown (qualifier value) [facility] (2 sources) diphenhydrAMINE; Translations: [diphenhydramine ] Drug Allergy Unknown (qualifier value) [facility] (2 sources) HYDROcodone; Translations: [hydrocodone] Drug Allergy Unknown (qualifier value) [facility] Medications Current Medications Medication Drug Class(es) Dates Sig (Normalized) Sig (Original) 8 hr acetaminophen 650 mg extended release oral tablet (14 sources) take 1 tablet by mouth every eight hours as needed for pain acetaminophen (Tylenol 8 Hour) 650 MG ER tablet Take 650 mg by mouth every 8 (eight) hours if needed for mild pain Do not crush, chew, or split. Active alendronic acid 70 mg oral tablet (16 sources) Bisphosphonate Start: 04-09-2023 alendronate (Fosamax) 70 MG tablet 04/09/2023 Active Alendronate Sodi um Active ciprofloxacin 0.003 mg/mg ophthalmic ointment (2 sources) Quinolone Antimicrobial Start: 05-19-2023 Ciloxan 0.3 % 1 application into the lower eyelid of affected eye right eye Twice a day for 7 days May, Active escitalopram 10 mg oral tablet (16 sources) Serotonin Reuptake Inhibitor Start: 02-17-2023 take 1 tablet by mouth once daily escitalopram 10 mg Tab 10 mg = 1 tab(s), Oral, Daily, # 90 tab(s), Refills(s) 3, Pharmacy: [id number], 66.9, cm, 12/29/22 9:58:00 EDT, Height/Length Dosing, 79, kg, 12/29/22 9:58:00 EDT, Weight Dosing Start Date: 02/17/23 Status: Ordered multivitamin with minerals (1 source) Start: 09-07-2022 multivitamin with minerals Refill(s) 0 Start Date: 09/07/22 Status: Ordered naproxen sodium 220 mg oral tablet (18 sources) Nonsteroidal Anti-inflammatory Drug naproxen sodium (Aleve) [...] 5 ml bupivacaine hydrochloride 5 mg/ml injection (8 sources) Amide Local Anesthetic Start: 10-06-2024 End: 10-06-2024 bupivacaine PF (Marcaine) 0.5 % injection 1 mL Start: 10-06-2024 End: 10-06-2024 1 mL, Injection, Once PRN Pr ocedure, Starting on Wed10/06/24 at 0850, For 1 dose Start: 01-13-2024 End: 01-13-2024 bupivacaine PF (Marcaine) 0. 5 % injection 1 mL Start: 01-13-2024 End: 01-13-2024 1 mL, Injection, Once PRN Pr ocedure, Starting on Candy 01/13/24 at 1422, For 1 dose 1 ml methylPREDNISolone acetate 40 mg/ml injection (20 sources) Corticosteroid Start: 10-06-2024 End: 10-06-2024 methylPREDNISolone acetate (DEPO-Medrol) injection 40 mg Start: 10-06-2024 End: 10-06-2024 40 mg, Intra-articular, Once PRN Procedure, Starting on Wed10/06/24 at 0850, For 1 dose Start: 05-08-2024 End: 05-08-2024 methylPREDNISolone acetate ( DEPO-Medrol) injection 40 mg Start: 05-08-2024 End: 05-08-2024 [...] mg, Intra-articular, Once PRN Procedure, Starting on Candy 01/13/24 at 1422, For 1 dose Start: 12-27-2023 [...] source) Derangement of knee 07-16-2022 Chronic Osteoarthritis (14 sources) Arthritis of left knee; Translations: [Unilateral primary osteoarthritis, left knee] 01-13-2024 Chronic Other diseases of kidney and ureters (1 source) Cyst of kidney 09-04-2022 Episodic Other diseases of veins and lymphatics (1 source) Lymphedema 09-04-2022 Chronic Comment on above: secondary to lymph n nodes in groin 2018 Other non-traumatic joint disorders (4 sources) Arthritis of right knee 05-08-2024 Chronic Other non-traumatic joint disorders (12 sources) Pain in left knee; Translations: [Pain [...] Test Name Value Interpretation Reference Range Facility Family Medicine Office/Clini c Noteon 12-07-2024 Family Medicine Office/Clinic Note Family Medicine Office/Clinic Note Chief Complaint Possible tiick bite The patient is concerned about a possible tick bite on her lower leg. HPI Staff Leonie Nieves pt. Presenting today due to possible tick bite on back of LT calf. Noticed on Wednesday. Did have some seeping. Has been applying witch claudine. Is now dried up. States there is a red [place] around it. Denies pain & itching. History of Present Illness 69-year-old female presenting with a suspected bite on her lower leg. She noticed a white, pea-sized object on her leg, which she initially thought was styrofoam, but upon flicking it off, it felt squishy. Clear liquid started to ooze from the site, and she applied witch claudine to dry it up. The area around the bite became red, which concerned her due to her history of lymphedema. She researched tick bites online and was worried about the possibility of Lyme disease, although the bite did not resemble typical tick bites. The patient has no pets and does not frequently work in the yard, reducing her exposure to ticks. She expressed concern about her 's brain cancer, adding to her stress levels. Review of Systems - Integumentary: Reports redness and clear discharge from the lower leg bite site. Denies itching or pain. - Lymphatic: Reports history of lymphedema. Physical Exam Vitals & Measurements T: 36.8 ???C(Oral) HR: 68(Peripheral) RR: 18 BP: 136/84 SpO2: 97% HT: 64 in HT: 163 cm WT: 82.9 kg WT: 182.763 lb BMI: 31.2 General: alert, no acute distress Skin: posterior left calf, small area of eschar with mild erythema Head: no trauma, normocephalic Neck: Trachea midline, no adenopathy, no tenderness Eye: normal conjunctiva, sclera clear Cardiovascular: regular rate and rhythm, normal peripheral perfusion Respiratory: Lungs CTA, respirations non labored Back: No tenderness, Normal ROM, Normal alignment. Extremities: no deformity, no trauma Assessment/Plan 1. Bitten or stung by nonvenomous insect and other nonvenomous arthropods, initial encounter (W57.XXXA: Bitten or stung by nonvenomous insect and other nonvenomous arthropods, initial encounter) - Monitor the site for changes; if redness persists or worsens, consider doxycycline and blood work to check immune response. - Apply Neosporin or triple antibiotic ointment to the site instead of witch claudine. - F/U in 3-5 days if no improvement 2. BMI 31.0-31.9,adult (Z68.31: Body mass index [BMI] 31.0-31.9, adult) BMI 31.2 3. Obesity (BMI 30-39.9) (E66.9: Obesity, unspecified) The standard range for ages 18 and older is >=18.5 and < 25 kg/m2. Your BMI today was above this range, this falls in the overweight to obese category and there are medical benefits to weight loss. We can offer counselling, referral, and/or medical support in addressing this problem. Your BMI and weight management will be followed at subsequent visits. 4. Non-smoker (Z78.9: Other specified health status) Encouraged to continue as a non- smoker Follow-up No qualifying data available Patient Education Insect Bite, Adult, [id number]-[id number] Problem List/Past Medical History Ongoing Anxiety and depression BMI 31.0-31.9,adult Derangement of knee Encounter for weight management Generalized anxiety disorder Insomnia Jaw pain Lymphedema Major depressive disorder, recurrent episode, moderate Mild recurrent major depression Nephrolithiasis Non-smoker Obesity (BMI 30-39.9) Osteoporosis Renal cyst Shingles Sinusitis Situational anxiety Synovial cyst Historical No qualifying data Procedure/Surgical History Cholecystectomy, Surgery. Medications Adipex-P 37.5 mg Tab, 37.5 mg= 1 tab(s), Oral, Daily Adipex-P 37.5 mg Tab, 37.5 mg= 1 tab(s), Oral, Daily alendronate 70 mg Tab, See Instructions busPIRone 10 mg Tab, 10 mg= 1 tab(s), Oral, TID, PRN escitalopram 10 mg Tab, 20 mg= 2 tab(s), Oral, Daily, 4 refills multivitamin with minerals Xanax 0.25 mg Tab, 0.25 mg= 1 tab(s), Oral, Bedtime Allergies Benadryl (Unknown) HYDROcodone (Unknown) Symbicort (Unknown) Social History Alcohol Past. Beer, Wine. 1-2 times per month., 09/25/2024 Substance Abuse Never., 09/25/2024 Tobacco Never (less than 100 in lifetime) Tobacco Use:. Never Smokeless Tobacco Use:. Household tobacco concerns: No. Yes, 12/07/2024 Family History Cancer: Brother. Diabetes mellitus type 2: Sister. TIA: Mother. Immunizations Vaccine Date Status Comments zoster vaccine, inactivated 03/27/2024 Recorded zoster vaccine, inactivated 01/25/2024 Recorded influenza virus vaccine, inactivated 01/25/2024 Recorded RSV vaccine preF3, recombinant 07/14/2023 Recorded influenza virus vaccine, inactivated 01/13/2023 Recorded SARS-CoV-2 (COVID-19) [id number].ORD![id number] 01/19/2022 Recorded pneumococcal 23-valent vaccine 01/06/2022 Recorded influenza virus vaccine, inactivated 01/06/2022 Recorded SARSCoV2 mRNA(mutuiafes-eovj-ey cros) vac 10/14/2021 Recorded SARS-Co (more content not included)... Normal [facility] Comment on above: Result Comment: Elec tronically Signed By: JUAN FRANCISCO PALOMINO CNP\.imelda\Date and Time Signed: 12/07/24 11:20 EDT Ambulatory Visit Summaryon 0 11-28-2024 Ambulatory Visit Summary Ambulatory Visit Summary LIONEL SMITH :1955 Visit Date:11/28/2024 Ambulatory Visit Instructions Your Diagnosis Encounter for weight management Generalized anxiety disorder Non-smoker BMI 31.0-31.9,adult, Body mass index [BMI] 31.0-31.9, adult Class 1 obesity due to excess calories with body mass index (BMI) of 31.0 to 31.9 in adult Other obesity due to excess calories Your Care Team Attending Physician - Leonie Kaplan Primary Care Physician - Leonie Kaplan This Is Your Medications List alendronate (alendronate 70 mg Tab) alprazolam (Xanax 0.25 mg Tab) busPIRone (busPIRone 10 mg Tab) escitalopram (escitalopram 10 mg Tab) multivitamin with minerals phentermine (Adipex-P 37.5 mg Tab) phentermine (Adipex-P 37.5 mg Tab) Procedures Performed Cholecystectomy, Surgery. Discharge Vitals Temperature (Temporal Artery) 36.1 ???C Heart Rate (Peripheral) 76 Respiratory Rate 18 Blood Pressure 142/82 Height 163.0 cm Height 64 in Weight 83.7 kg Weight 184.527 lb BMI 31.5 What to do next Scheduled Follow-Up Appointments Wednesday 1:20 PM EDT With: Leonie Kaplan Where: [place] [id number]- Medications What How Much When Why Instructions Unchanged alendronate (alendronate 70 mg Tab) See instructions Take 1 tablet by mouth once a week Unchanged alprazolam (Xanax 0.25 mg Tab) 1 Tablets By Mouth At bedtime Anxiety and depression Insomnia Unchanged busPIRone (busPIRone 10 mg Tab) 1 Tablets By Mouth 3 times a day as needed for Anxiety Generalized anxiety disorder Mild recurrent major depression BMI 33.0-33.9,adult Non-smoker Unchanged escitalopram (escitalopram 10 mg Tab) 2 Tablets By Mouth Every day Anxiety and depression Insomnia BMI 29.0-29.9,adult Non-smoker Situational anxiety increase dose to 20mg Unchanged multivitamin with minerals Unchanged phentermine (Adipex-P 37.5 mg Tab) 1 Tablets By Mouth Every day Generalized anxiety disorder Mild recurrent major depression BMI 33.0-33.9,adult Non-smoker Unchanged phentermine (Adipex-P 37.5 mg Tab) 1 Tablets By Mouth Every day Generalized anxiety disorder Mild recurrent major depression BMI 33.0-33.9,adult Non-smoker Allergies Benadryl (Unknown) HYDROcodone (Unknown) Symbicort (Unknown) Problems Ongoing - Any problem that you are currently receiving treatment for. Anxiety and depression Derangement of knee Encounter for weight management Generalized anxiety disorder Insomnia Jaw pain Lymphedema [...] you for choosing us for your care. Patient Portal You may access all of your results and other medical record information on our secure patient portal. If you are not signed up for this yet, please contact [employer] at [phone] to get signed up today. Language Information Language assistance services are available as needed. Normal [facility] Family Medicine Office/Clini c Noteon 11-28-2024 Family Medicine Office/Clinic Note Family Medicine Office/Clinic Note HPI Staff Please speak with patient about scheduling an AWV. Lionel is a 69 year old female presenting with 1 month f/u Weight management Adipex Sleeping well:Yes, 6-8 hours Chest pain:No Tremors:No Headaches:No Heart fluttering:No Blurred Vision:No Starting Weight: 186.73 lbs. Weight this visit: 184 lbs Wednesday night she ate peanuts she has been constipated Last ZEUS- 5 PHQ- 2 Increased Lexapro 10 mg Follow up for Mental Status: Medication adherence- Yes, takes medication as prescribed Medication refill needed: _ Suicidal thoughts- Most recent ZEUS: 0 Most recent PHQ: 1 Refills she is not sure History of Present Illness pt presents today for weight management. Review of Systems PHQ Score Initial Depression Screen Score: 0 SCORE Physical Exam Vitals & Measurements T: 36.1 ???C(Temporal Artery) HR: 76(Peripheral) RR: 18 BP: 142/82 SpO2: 99% HT: 163.0 cm HT: 64 in WT: 83.7 kg WT: 184.527 lb BMI: 31.5 General: alert, no acute distress ENMT: oral mucosa moist, no pharyngeal erythema or exudate Cardiovascular: regular rate and rhythm, normal peripheral perfusion Respiratory: Lungs CTA, respirations non labored Extremities: no deformity, no trauma Neurological: oriented x 4, LOC appropriate for age, CN II-XII intact, motor strength equal & normal bilaterally, speech normal Assessment/Plan 1. Encounter for weight management (Z76.89: Persons encountering health services in other specified circumstances) pt presents today for weight management. is down 2 pounds since last visit. total of 10 pounds. RTC 3 months 2. Generalized anxiety disorder (F41.1: Generalized anxiety disorder) pt is dong well on current medication., is not using buspar. but if she starts having bad days again. she will take it. 3. Non-smoker (Z78.9: Other specified health status) continue not smoking 4. BMI 31.0-31.9,adult, (Z68.31: Body mass index [BMI] 31.0-31.9, adult)Body mass index [BMI] 31.0-31.9, adult BMI education given 5. Class 1 obesity due to excess calories with body mass index (BMI) of 31.0 to 31.9 in adult (E66.811: Obesity, class 1) see above Other obesity due to excess calories (E66.09: Other obesity due to excess calories) Follow-up No qualifying data available Problem List/Past Medical History Ongoing Anxiety and depression Derangement of knee Encounter for weight management Generalized anxiety disorder Insomnia Jaw pain Lymphedema Major depressive disorder, recurrent episode, moderate Mild recurrent major depression Nephrolithiasis Non-smoker Osteoporosis Renal cyst Shingles Sinusitis Situational anxiety Synovial cyst Historical No qualifying data Procedure/Surgical History Cholecystectomy, Surgery. Medications Adipex-P 37.5 mg Tab, 37.5 mg= 1 tab(s), Oral, Daily Adipex-P 37.5 mg Tab, 37.5 mg= 1 tab(s), Oral, Daily alendronate 70 mg Tab, See Instructions busPIRone 10 mg Tab, 10 mg= 1 tab(s), Oral, TID, PRN escitalopram 10 mg Tab, 20 mg= 2 tab(s), Oral, Daily, 4 refills multivitamin with minerals Xanax 0.25 mg Tab, 0.25 mg= 1 tab(s), Oral, Bedtime Allergies Benadryl (Unknown) HYDROcodone (Unknown) Symbicort (Unknown) Social History Alcohol Past. Beer, Wine. 1-2 times per month., 09/25/2024 Substance Abuse Never., 09/25/2024 Tobacco Never (less than 100 in lifetime) Tobacco Use:. Never Smokeless Tobacco Use:. Household tobacco concerns: No., 11/28/2024 Family History Cancer: Brother. Diabetes mellitus type 2: Sister. TIA: Mother. Immunizations Vaccine Date Status Comments zoster vaccine, inactivated 03/27/2024 Recorded zoster vaccine, inactivated 01/25/2024 Recorded influenza virus vaccine, inactivated 01/25/2024 Recorded RSV vaccine preF3, recombinant 07/14/2023 Recorded influenza virus vaccine, inactivated 01/13/2023 Recorded SARS-CoV-2 (COVID-19) [id number].[id number] 01/19/2022 Recorded pneumococcal 23-valent vaccine 01/06/2022 Recorded influenza virus vaccine, inactivated 01/06/2022 Recorded SARSCoV2 mRNA(jgpfxnghu-xcbc-yf cros) vac 10/14/2021 Recorded SARS-CoV-2 (COVID-19) mRNA BNT-162b2 vax 02/14/2021 Recorded 2022-09-04: [id number] pneumococcal 13-valent vaccine 01/08/2021 Recorded influenza virus vaccine, inactivated 01/08/2021 Recorded SARS-CoV-2 (COVID-19) mRNA BNT-162b2 vax 07/30/2020 Recorded SARS-CoV-2 (COVID-19) mRNA BNT-162b2 vax 07/08/2020 Recorded influenza virus vaccine, inactivated 03/10/2020 Recorded influenza virus vaccine, inactivated 02/04/2019 Recorded influenza virus vaccine, inactivated 02/28/2018 Recorded Normal [facility] Comment on above: Result Comment: Elec tronically Signed By: Leonie Kaplan\.br\Date and Time Signed: 11/28/24 13:18 EDT Ambulatory Visit Summaryon 0 10-26-2024 Ambulatory Visit Summary Ambulatory Visit Summary LIONEL SMITH :1955 Visit Date:10/26/2024 Ambulatory Visit Instructions Your Diagnosis Encounter for weight management Generalized anxiety disorder Major depressive disorder, recurrent episode, moderate Non-smoker BMI 31.0-31.9,adult Your Care Team Attending Physician - Leonie Kaplan Primary Care Physician - Leonie Kaplan This Is Your Medications List alendronate (alendronate 70 mg Tab) alprazolam (Xanax 0.25 mg Tab) busPIRone (busPIRone 10 mg Tab) escitalopram (escitalopram 10 mg Tab) multivitamin with minerals phentermine (Adipex-P 37.5 mg Tab) Procedures Performed Cholecystectomy, Surgery. Discharge Vitals Heart Rate (Peripheral) 76 Blood Pressure 138/70 Height 163 cm Height 64 in Weight 84.7 kg Weight 186.731 lb BMI 31.88 What to do next Scheduled Follow-Up Appointments Wednesday 1:00 PM EDT With: Leonie Kaplan Where: [place] [id number]- Medications What How Much When Why Instructions Unchanged alendronate (alendronate 70 mg Tab) See instructions Take 1 tablet by mouth once a week Unchanged alprazolam (Xanax 0.25 mg Tab) 1 Tablets By Mouth At bedtime Anxiety and depression Insomnia Unchanged busPIRone (busPIRone 10 mg Tab) 1 Tablets By Mouth 3 times a day as needed for Anxiety Generalized anxiety disorder Mild recurrent major depression BMI 33.0-33.9,adult Non-smoker Unchanged escitalopram (escitalopram 10 mg Tab) 2 Tablets By Mouth Every day Anxiety and depression Insomnia BMI 29.0-29.9,adult Non-smoker Situational anxiety increase dose to 20mg Unchanged multivitamin with minerals Unchanged phentermine (Adipex-P 37.5 mg Tab) 1 Tablets By Mouth Every day Generalized anxiety disorder Mild recurrent major depression BMI 33.0-33.9,adult Non-smoker Allergies Benadryl (Unknown) HYDROcodone (Unknown) Symbicort (Unknown) Problems Ongoing - Any problem that you are currently receiving treatment for. Anxiety and depression BMI 29.0-29.9,adult Derangement of knee Encounter for weight management Generalized anxiety disorder Insomnia Jaw pain Lymphedema [...] you for choosing us for your care. Patient Portal You may access all of your results and other medical record information on our secure patient portal. If you are not signed up for this yet, please contact [employer] at [phone] to get signed up today. Language Information Language assistance services are available as needed. [facility] Family Medicine Office/Clini c Noteon 10-26-2024 Family Medicine Office/Clinic Note Family Medicine Office/Clinic Note Chief Complaint 1 month f/u HPI Staff Please speak with patient about scheduling an AWV. Patient is presenting for 1 month follow up anxiety/depression AGNIESZKA Lexapro was increased to 20 mg, BuSpar prn. ZEUS:14 Follow up for Mental Status: Medication adherence- Yes, takes medication as prescribed Medication refill needed: yes Suicidal thoughts-Not at this time Most recent ZEUS: 5 Most recent PHQ: 2 Refills: History of Present Illness pt presents today for follow up on anxiety and depression Review of Systems PHQ Score Initial Depression Screen Score: 0 SCORE Physical Exam Vitals & Measurements HR: 76(Peripheral) BP: 138/70 SpO2: 97% HT: 163 cm HT: 64 in WT: 186.731 lb WT: 84.7 kg BMI: 31.88 General: alert, no acute distress ENMT: oral mucosa moist, no pharyngeal erythema or exudate Cardiovascular: regular rate and rhythm, normal peripheral perfusion Respiratory: Lungs CTA, respirations non labored Extremities: no deformity, no trauma Neurological: oriented x 4, LOC appropriate for age, CN II-XII intact, motor strength equal & normal bilaterally, speech normal Assessment/Plan 1. Encounter for weight management (Z76.89: Persons encountering health services in other specified circumstances) pt is down 8 pounds. doing well. denies needs or side effects. would like to continue. she will return in 5 weeks. I will be off on week 4 so she will phone in for refill. 2. Generalized anxiety disorder (F41.1: Generalized anxiety disorder) doing much better since increasing lexapro Ordered: phentermine, 37.5 mg = 1 tab(s), Oral, Daily, # 30 tab(s), Refills(s) 0, Pharmacy: [id number], 163, cm, 09/28/24 13:00:00 EDT, Height/Length Dosing, 88.3, kg, 09/28/24 13:00:00 EDT, Weight Dosing phentermine, 37.5 mg = 1 tab(s), Oral, Daily, # 30 tab(s), Refills(s) 0, Pharmacy: [id number], 163, cm, 10/26/24 13:25:00 EDT, Height/Length Dosing, 84.7, kg, 10/26/24 13:25:00 EDT, Weight Dosing 1126F Pain severity quantified; no pain present Current tobacco non-user 1036F Medication list documented in medical record 1159F Most recent diastolic blood pressure <80 mm Hg 3078F Systolic BP 130-139 mm Hg (Most Recent) 3075F 3. Major depressive disorder, recurrent episode, moderate (F33.1: Major depressive disorder, recurrent, moderate) see above 4. Non-smoker (Z78.9: Other specified health status) continue not smoking Ordered: phentermine, 37.5 mg = 1 tab(s), Oral, Daily, # 30 tab(s), Refills(s) 0, Pharmacy: [id number], 163, cm, 09/28/24 13:00:00 EDT, Height/Length Dosing, 88.3, kg, 09/28/24 13:00:00 EDT, Weight Dosing phentermine, 37.5 mg = 1 tab(s), Oral, Daily, # 30 tab(s), Refills(s) 0, Pharmacy: [id number], 163, cm, 10/26/24 13:25:00 EDT, Height/Length Dosing, 84.7, kg, 10/26/24 13:25:00 EDT, Weight Dosing 5. BMI 31.0-31.9,adult (Z68.31: Body mass index [BMI] 31.0-31.9, adult) BMI education given Follow-up No qualifying data available Problem List/Past Medical History Ongoing Anxiety and depression BMI 29.0-29.9,adult Derangement of knee Encounter for weight management Generalized anxiety disorder Insomnia Jaw pain Lymphedema Major depressive disorder, recurrent episode, moderate Mild recurrent major depression Nephrolithiasis Non-smoker Osteoporosis Renal cyst Shingles Sinusitis Situational anxiety Synovial cyst Historical No qualifying data Procedure/Surgical History Cholecystectomy, Surgery. Medications Adipex-P 37.5 mg Tab, 37.5 mg= 1 tab(s), Oral, Daily alendronate 70 mg Tab, See Instructions busPIRone 10 mg Tab, 10 mg= 1 tab(s), Oral, TID, PRN escitalopram 10 mg Tab, 20 mg= 2 tab(s), Oral, Daily, 4 refills multivitamin with minerals Xanax 0.25 mg Tab, 0.25 mg= 1 tab(s), Oral, Bedtime Allergies Benadryl (Unknown) HYDROcodone (Unknown) Symbicort (Unknown) Social History Alcohol Past. Beer, Wine. 1-2 times per month., 09/25/2024 Substance Abuse Never., 09/25/2024 Tobacco Never (less than 100 in lifetime) Tobacco Use:. Never Smokeless Tobacco Use:. Household tobacco concerns: No., 10/26/2024 Family History Cancer: Brother. Diabetes mellitus type 2: Sister. TIA: Mother. Immunizations Vaccine Date Status Comments zoster vaccine, inactivated 01/25/2024 Recorded influenza virus vaccine, inactivated 01/25/2024 Recorded influenza virus vaccine, inactivated 01/13/2023 Recorded SARS-CoV-2 (COVID-19) [id number] 01/19/2022 Recorded pneumococcal 23-valent vaccine 01/06/2022 Recorded influenza virus vaccine, inactivated 01/06/2022 Recorded SARSCoV2 mRNA(nxoytpiay-zodq-xr cros) vac 10/14/2021 Recorded SARS-CoV-2 (COVID-19) mRNA BNT-162b2 vax 02/14/2021 Recorded 2022-09-04: [id number] pneumococcal 13-valent vaccine 01/08/2021 Recorded influenza virus vaccine, inactivated 01/08/2021 Recorded SARS-CoV-2 (COVID-19) mRNA BNT-162b2 vax 07/30/2020 Recorde (more content not included)... [facility] Comment on above: Result Comment: Elec tronically Signed By: Leonie Kaplan\.br\Date and Time Signed: 10/26/24 13:39 EDT No Panel Informationon 10-06 JAKE Camacho 10/06/2024 8:56 AM L Inj/Asp: R knee on 10/06/2024 [...] discussed. Consent was given by the patient. [facility] XR Knee - right 1 or 2 Views on 10-04-2024 [place] [address] XRay Report Signed Patient: LIONEL SMITH MR#: [id number] : 1955 Acct:[id number] Age/Sex: 69 / F ADM Date: 10/04/24 Loc: KEO Attending Dr: Roya JOSEPH Ordering Physician: Roya Rodriguez Date of Service: 10/04/24 Procedure(s): XR knee RT 2V Accession Number(s): [id number] cc: Roya Rodriguez; DIMA PEREZ [place] [address] Patient Name: LIONEL SMITH MRN: [id number] date: 1955 Sex: F Assigned Patient Location: [facility] Current Patient Location: [facility] Accession/Order Number: [id number] Exam Date: 10/04/2024 11:06 Report Date: 10/04/2024 [...] Khalil M.D. 10/04/2024 11:08 AM Dictation Location: [place] [address] Electronically authenticated by: [id number] Date: 10/04/2024 11:08 Dictated By: Tamra Khalil M.D. Signed By: 10/04/24 1111 DD/ 1108 TD/TT: Hospital Food Service Worker: [facility] Radiology, Radiologist, MD - 10/04/2024 [place] [address] XRay Report Signed Patient: LIONEL SMITH MR#: [id number] : 1955 Acct:[id number] Age/Sex: 69 / F ADM Date: 10/04/24 Loc: RAD Attending Dr: Roya JOSEPH Ordering Physician: Roya Rodriguez Date of Service: 10/04/24 Procedure(s): XR knee RT 2V Accession Number(s): [id number] cc: Roya Rodriguez; DIMA PEREZ [place] [id number] Patient Name: LIONEL SMITH MRN: [facility]:[id number] date: 1955 Sex: F Assigned Patient Location: [facility] Current Patient Location: [facility] Accession/Order Number: [id number] Exam Date: 10/04/2024 11:06 Report Date: 10/04/2024 [...] Khalil M.D. 10/04/2024 11:08 AM Dictation Location: [place] [address] Electronically authenticated by: [id number] Y Date: 10/04/2024 11:08 Dictated By: Tamra Khalil M.D. Signed By: 10/04/24 1111 DD/ 1108 TD/TT: Hospital Food Service Worker: [facility] [employer] Radiology Study observation (narrative) [facility] [employer] XR Knee - right 1 or 2 Views Ordered By: Radiologist Radiology on 10-04-2024 [facility] [employer] Work Phone: Ambulatory Visit Summaryon 0 09-28-2024 Ambulatory Visit [...] 1:20 PM EDT With: Leonie Kaplan Where: [address] [address]- Medications What How Much When Why Instructions New busPIRone (busPIRone 10 mg Tab) 1 Tablets By Mouth 3 times a day as needed for Anxiety Generalized anxiety disorder Mild recurrent major depression BMI 33.0-33.9,adult Non-smoker Pickup at [facility] New phentermine (Adipex-P 37.5 mg Tab) 1 Tablets By Mouth Every day Generalized anxiety disorder Mild recurrent major depression BMI 33.0-33.9,adult Non-smoker Pickup at [facility] Unchanged alendronate (alendronate 70 mg Tab) See instructions Take 1 tablet by mouth once a week Unchanged alprazolam (Xanax 0.25 mg Tab) 1 Tablets By Mouth At bedtime Anxiety and depression Insomnia Unchanged escitalopram (escitalopram 10 mg Tab) 1 Tablets By Mouth Every day Anxiety and depression Insomnia BMI 29.0-29.9,adult Non-smoker Situational anxiety Unchanged multivitamin with minerals Pharmacy Information [facility]: [address] [facility] [address] [place], [place] [id number] [phone] Allergies Benadryl (Unknown) HYDROcodone (Unknown) Symbicort (Unknown) [...] for choosing us for your care. [facility] Family Medicine Office/Clini c Noteon 09-28-2024 Family Medicine Office/Clinic Note Family Medicine Office/Clinic Note HPI Staff Please speak with patient about scheduling an AWV. Lionel is a 69 year old female presenting [...] Anxiety, # 30 tab(s), Refills(s) 0, Pharmacy: [facility], 163, cm, 09/28/24 13:00:00 EDT, Height/Length Dosing, 88.3, kg, 09/28/24 13:00:00 EDT, Weight Dosing phentermine, 37.5 mg = 1 tab(s), Oral, Daily, # 30 tab(s), Refills(s) 0, Pharmacy: [facility], 163, cm, 09/28/24 13:00:00 EDT, Height/Length Dosing, 88.3, kg, 09/28/24 13:00:00 EDT, Weight Dosing 2. Mild recurrent major depression (F33.0: Major depressive disorder, recurrent, mild) deferred PQH-9 due to situation. Ordered: busPIRone, 10 mg = 1 tab(s), Oral, TID, PRN Anxiety, # 30 tab(s), Refills(s) 0, Pharmacy: [facility], 163, cm, 09/28/24 13:00:00 EDT, Height/Length Dosing, 88.3, kg, 09/28/24 13:00:00 EDT, Weight Dosing phentermine, 37.5 mg = 1 tab(s), Oral, Daily, # 30 tab(s), Refills(s) 0, Pharmacy: [facility], 163, cm, 09/28/24 13:00:00 EDT, Height/Length Dosing, 88.3, kg, 09/28/24 13:00:00 EDT, Weight Dosing 3. BMI 33.0-33.9,adult (Z68.33: Body mass index [BMI] 33.0-33.9, adult) BMI education. will start Adipex-P. medication agreement signed. OARRS report reviewed. RTC 4 weeks for weight check Ordered: busPIRone, 10 mg = 1 tab(s), Oral, TID, PRN Anxiety, # 30 tab(s), Refills(s) 0, Pharmacy: [facility], 163, cm, 09/28/24 13:00:00 EDT, Height/Length Dosing, 88.3, kg, 09/28/24 13:00:00 EDT, Weight Dosing phentermine, 37.5 mg = 1 tab(s), Oral, Daily, # 30 tab(s), Refills(s) 0, Pharmacy: [facility], 163, cm, 09/28/24 13:00:00 EDT, Height/Length Dosing, 88.3, kg, 09/28/24 13:00:00 EDT, Weight Dosing 4. Non-smoker (Z78.9: Other specified health status) continue not smoking Ordered: busPIRone, 10 mg = 1 tab(s), Oral, TID, PRN Anxiety, # 30 tab(s), Refills(s) 0, Pharmacy: [facility], 163, cm, 09/28/24 13:00:00 EDT, Height/Length Dosing, 88.3, kg, 09/28/24 13:00:00 EDT, Weight Dosing escitalopram, 20 mg = 2 tab(s), Oral, Daily, increase dose to 20mg, # 90 tab(s), Refills(s) 4, Pharmacy: [facility], 163, cm, 07/05/23 11:41:00 EST, Height/Length Dosing, 81.1, kg, 07/05/23 11:41:00 EST, Weight Dosing mupirocin topical, 1 rebecca, Topical, TID, 30 gram, Refill(s) 0, [facility], 163, cm, 02/14/24 8:29:00 EDT, Height/Length Dosing, 85.9, kg, 02/14/24 8:29:00 EDT, Weight Dosing phentermine, 37.5 mg = 1 tab(s), Oral, Daily, # 30 tab(s), Refills(s) 0, Pharmacy: [facility], 163, cm, 09/28/24 13:00:00 [...] 37.5 m (more content not included)... [facility] Comment on above: Result Comment: Elec [...] discussed. Consent was given by the patient. [facility] No Panel Informationon 05-01 JAKE Camacho 05/01/2024 [...] and draped in the usual sterile fashion. [facility] Ambulatory Visit Summaryon 1 Ambulatory Visit Summary [...] choosing us for your care. [facility] Family Medicine Office/Clini c Noteon 02-14-2024 [...] day(s), # 28 cap(s), Refills(s) 0, Pharmacy: [facility], 163, cm, 02/14/24 8:29:00 EDT, Height/Length Dosing, 85.9, kg, 02/14/24 8:29:00 EDT, Weight Dosing mupirocin topical, 1 rebecca, Topical, TID, 30 gram, Refill(s) 0, [facility], 163, cm, 02/14/24 8:29:00 EDT, Height/Length Dosing, 85.9, kg, 02/14/24 8:29:00 EDT, Weight Dosing valacyclovir, 1 gm = 1 tab(s), Oral, q8hr, X 7 day(s), # 21 tab(s), Refills(s) 0, [facility] 163, cm, 02/14/24 8:29:00 EDT, Height/Length Dosing, 85.9, kg, 02/14/24 8:29:00 EDT, Weight Dosing 2. Jaw pain (R68.84: Jaw pain) will treat with antibitoic Ordered: clindamycin, 300 mg = 1 cap(s), Oral, q6hr, X 7 day(s), # 28 cap(s), Refills(s) 0, Pharmacy: [facility], 163, cm, 02/14/24 8:29:00 EDT, Height/Length Dosing, 85.9, kg, 02/14/24 8:29:00 EDT, Weight Dosing mupirocin topical, 1 rebecca, Topical, TID, 30 gram, Refill(s) 0, [facility], cm, 02/14/24 8:29:00 EDT, Height/Length Dosing, 85.9, kg, 02/14/24 8:29:00 EDT, Weight Dosing valacyclovir, 1 gm = 1 tab(s), Oral, q8hr, X 7 day(s), # 21 tab(s), Refills(s) 0, [facility] 163, cm, 02/14/24 8:29:00 EDT, Height/Length [...] day(s), # 28 cap(s), Refills(s) 0, [facility] 163, cm, 02/14/24 8:29:00 EDT, Height/Length Dosing, 85.9, kg, 02/14/24 8:29:00 EDT, Weight Dosing mupirocin topical, 1 rebecca, Topical, TID, 30 gram, Refill(s) 0, [facility], cm, 02/14/24 8:29:00 EDT, Height/Length Dosing, 85.9, kg, 02/14/24 8:29:00 EDT, Weight Dosing valacyclovir, 1 gm = 1 tab(s), Oral, q8hr, X 7 day(s), # 21 tab(s), Refills(s) 0, Pharmacy: [facility] #[facility], 163, cm, 02/14/24 8:29:00 EDT, Height/Length [...] q12hr, # 20 cap(s), Refills(s) 0, Pharmacy: [facility], 163, cm, 07/05/23 11:41:00 EST, Height/Length Dosing, 81.1, kg, 07/05/23 11:41:00 EST, Weight Dosing clindamycin, 300 mg = 1 cap(s), Oral, q6hr, X 7 day(s), # 28 cap(s), Refills(s) 0, Pharmacy: [facility] #[facility], 163, cm, 02/14/24 8:29:00 EDT, Height/Length Dosing, 85.9, kg, 02/14/24 8:29:00 EDT, Weight Dosing mupirocin topical, 1 rebecca, Topical, TID, 30 gram, Refill(s) 0, [facility], 163, cm, 02/14/24 8:29:00 EDT, Height/Length Dosing, 85.9, kg, 02/14/24 8:29:00 EDT, Weight Dosing valacyclovir, 1 gm = 1 tab(s), Oral, q8hr, X 7 day(s), # 21 tab(s), Refills(s) 0, Pharmacy: [facility] #[facility]177, 163, cm, 02/14/24 8:29:00 EDT, Height/Length Dosing, 85.9, kg, 02/14/24 8:29:00 EDT, Weight Dosing Body Mass Index (BMI) documented 3008F Current tobacco (more content not included)... [facility] Comment on above: Result Comment: Elec tronically Signed By: Leonie Kaplan\.br\Date and Time Signed: 02/14/24 09:08 EDT No [...] discussed. Consent was given by the patient. [facility] No Panel Informationon 12-26 JAKE Camacho 12/27/2023 [...] discussed. Consent was given by the patient. [facility] CHEMISTRYOrdered By: SYSTEM SYSTEM on 03-03-2023 Albumin [Mass/Vol] 4.7 g/dL Normal 3.3 - 5.0 gm/dL [facility] Remisol Albumin/Globulin [Mass ratio] 1.5 {ratio} Normal 1.1 - 2.2 [facility] Remisol ALP [Catalytic activity/Vol] 80 [iU]/d Normal [...] 0.6 mg/dL Normal 0.5 - 1.3 mg/dL [facility] Remisol GFR/1.73 sq M.predicted among non-blacks MDRD (S/P/Bld) [Vol rate/Area] 98 mL/min/1.73 m2 Normal >=59mL/min/1 .73 m2 [facility] Chem S Comment on above: Interpretive Data: [...] : DR MANDY PÉREZ . Admission #: [id number] Family : Order #: [id number] CLICK HERE TO VIEW EXAM RADIOLOGY REPORT [...] pancreatic cancer at age 60. LOCATION: [facility] BREAST COMPOSITION: Heterogeneously dense,which may [...] Barcenas MD on 08/17/2022 at 15:46 Normal [facility] Vital Signs Date Time Vital Sign Value Performing Clinician Facility 12-27-2023 09:56-0400 Body height 162.6 cm Roya JOSEPH Work Phone: [facility] 12-27-2023 09:56-0400 Body mass index (BMI) [Ratio] 30.55 kg/m2 Roya JOSEPH Work Phone: [facility] 12-27-2023 09:56-0400 Body weight 80.74 kg Roya JOSEPH Work Phone: [facility] 05-19-2023 17:50-0500 Body height 162.56 cm Fatoumata Dougherty Other [facility] Other 05-19-2023 17:50-0500 Body mass index (BMI) [Ratio] 28.01 kg/m2 Fatoumata Dougherty Other [facility] Other 05-19-2023 17:50-0500 Body temperature 96.8 [degF] Fatoumata Ladonna Other [facility] Other 05-19-2023 17:50-0500 Body weight 74.03 kg Fatoumata Ladonna Other [facility] Other 05-19-2023 17:50-0500 Diastolic blood pressure 71 mm[Hg] Fatoumata Ladonna Other [facility] Other 05-19-2023 17:50-0500 Respiratory rate 20 /min Fatoumata Ladonna Other [facility] Other 05-19-2023 17:50-0500 SaO2% (BldA) [Mass fraction] 99 % Fatoumata Ladonna Other [facility] Other 05-19-2023 17:50-0500 Systolic blood pressure 167 mm[Hg] Fatoumata Ladonna Other [facility] Other 07-17-2022 10:55-0400 Body temperature 97.7 [degF] Fatoumata Ladonna Other [facility] Other 07-17-2022 10:55-0400 Body weight 75.75 kg Fatoumata Ladonna Other [facility] Other 07-17-2022 10:55-0400 Diastolic blood pressure 75 mm[Hg] Fatoumata Ladonna Other [facility] Other 07-17-2022 10:55-0400 SaO2% (BldA) [Mass fraction] 98 % Fatoumata Ladonna Other [facility] Other 07-17-2022 [id number] Systolic blood pressure 173 mm[Hg] Fatoumata Dougherty Other [facility] Other Encounters Encounter Date Encounter Type Care Provider Facility Start: 12-07-2024 End: 12-07-2024 ambulatory JUAN FRANCISCO DOTYANN [facility] Start: 11-28-2024 End: 11-28-2024 ambulatory BLOOM CONVEYOR OPERATOR Leonie L Lizbeth Facility:[facility] Start: 11-22-2024 End: 11-22-2024 ambulatory BLOOM CONVEYOR OPERATOR Leonie L Lizbeth Facility:[facility] Start: 10-26-2024 End: 10-26-2024 ambulatory BLOOM CONVEYOR OPERATOR Leonie L Lizbeth Facility:[facility] [place] [facility] Start: 10-06-2024 End: 10-06-2024 Bamboo flowsheet Roya JOSEPH Work Phone: [facility] Start: 10-06-2024 End: 10-06-2024 Bamboo flowsheet Roya JOSEPH Work Phone: [facility] Start: 10-06-2024 End: 10-06-2024 Office outpatient visit 25 minutes Roya JOSEPH Work Phone: [facility] Comment on above: Arthritis of right k nee (Primary Dx); Acute pain of right knee Start: 10-06-2024 End: 10-06-2024 ambulatory ROYA RODRIGUEZ Not Available Start: 10-04-2024 End: 10-04-2024 Clinisync Result Encounter Roya JOSEPH Work Phone: [facility] External Department Unsolicited Start: 10-04-2024 End: 10-04-2024 Clinisync Result Encounter Roya JOSEPH Work Phone: [facility] External Department Unsolicited Start: 09-28-2024 End: 09-28-2024 ambulatory BLOOM CONVEYOR OPERATOR Leonie L Lizbeth Facility:[facility] Start: 05-08-2024 End: 05-08-2024 ambulatory ROYA RODRIGUEZ Not Available Start: 05-08-2024 End: 05-08-2024 Patient encounter procedure Roya Rodriguez PA Work Phone: [facility] [...] Not Available Start: 02-14-2024 End: 02-14-2024 ambulatory [facility] Facility: [facility] Start: 01-13-2024 End: 01-13-2024 Bamboo flowsheet Roya Rodriguez PA Work Phone: [facility] Start: 01-13-2024 End: 01-13-2024 Bamboo flowsheet Roya Rodriguez PA Work Phone: [facility] Start: 01-13-2024 End: 01-13-2024 Office outpatient visit 25 minutes Roya Rodriguez PA Work Phone: [facility] Comment on above: Acute pain of left k nee (Primary Dx); Arthritis of left knee Start: 01-13-2024 End: 01-13-2024 ambulatory ROYA RODRIGUEZ Not Available Start: 12-27-2023 End: 12-27-2023 Bamboo flowsheet Roya Rodriguez PA Work Phone: [facility] Start: 12-27-2023 End: 12-27-2023 Bamboo flowsheet Roya JOSEPH Work Phone: [facility] Start: 12-27-2023 End: 12-27-2023 Office outpatient visit 25 minutes Roya JOSEPH Work Phone: [facility] Comment on above: Acute pain of right knee (Primary Dx); Acute pain of left knee; Arthritis of right knee; Arthritis of left knee Start: 12-27-2023 End: 12-27-2023 ambulatory ROYA RODRIGUEZ Not Available Start: 05-20-2023 End: 05-20-2023 ambulatory Claudia Garciab Other [facility] Other Start: 05-20-2023 Telephone encounter Claudia Ferdy [facility] Start: 05-19-2023 End: 05-19-2023 ambulatory Fatoumata Dougherty Other [facility] Other Start: 05-19-2023 Office outpatient vi sit 15 minutes Fatoumata Dougherty [facility] Start: 03-03-2023 End: 03-03-2023 Lab Drop off Leonie Nieves [facility] Start: 08-17-2022 End: 08-18-[address] MANDY PÉREZ . Facility: Start: 07-17-2022 End: 07-17-2022 ambulatory Fatoumata Dougherty Other [facility] Other Start: 07-17-2022 Office outpatient ne w 20 minutes Fatoumata Dougherty [facility] Procedures Date Procedure Procedure Detail Performing Clinician Start: 10-06-2024 Arthrocentesis aspir &/inj major jt/bursa w/o us Roya JOSEPH Work Phone: Start: 10-04-2024 Radiologic examinati on knee 1/2 views Roya JOSEPH Work Phone: Start: 05-08-2024 Arthrocentesis aspir &/inj major jt/bursa w/o us Roya JOSEPH Work Phone: Start: 05-01-2024 Arthrocentesis aspir &/inj major jt/bursa w/o us Roya JOSEPH Work Phone: Start: 01-13-2024 Arthrocentesis aspir &/inj major jt/bursa w/o us Roya JOSEPH Work Phone: Start: 12-27-2023 Arthrocentesis aspir &/inj major jt/bursa w/o us Roya JOSEPH Work Phone: Start: 07-25-2012 Colonoscopy Roya JOSEPH Work Phone: Cholecystectomy Leonie Lizbeth Surgical procedure Leonie Schw ab Plan of Treatment Date Care Activity Detail Author Start: 02-27-2025 ambulatory Ambulatory Facility:[facility] Start: 02-26-2025 End: 02-26-2025 Patient encounter procedure 02/26/2025 9:00 AM EDT Office Visit [facility] [address] [place] [address] Jr. Harley Coles, DO [address] [place] [address] [facility] Start: 10-06-2024 End: 10-06-2024 Patient encounter procedure [facility] Comment on above: Acute pain of right knee Start: 10-02-2024 End: 10-02-2025 XR Knee - right 1 or 2 Views XR knee 1 or 2 views right Imaging Routine Acute pain of right knee Expected: 10/02/2024 (Approximate), Expires: 10/02/2025 [facility] Work Phone: Comment on above: Expected: 10/02/2024 (Approximate), Expires: 10/02/2025 Start: 05-01-2024 End: 05-01-2024 Patient encounter procedure 05/01/2024 8:30 AM EST Office Visit [facility] [address] [place] [address] Roya Rodriguez PA [address] [facility] [address] [place] [address] Acute pain of left knee (Primary Dx); Arthritis of left knee; Acute pain of right knee; Arthritis of right knee [facility] Comment on above: Acute pain of left k nee (Primary Dx); Arthritis of left knee; Acute pain of right knee; Arthritis of right knee Start: 01-13-2024 End: 01-13-2024 Patient encounter procedure 01/13/2024 1:45 PM EDT Office Visit [facility] [address] [facility] [address] [place] [address] Roya Rodriguez PA [address] [facility] [address] [place] [address] Arrived [facility] Comment on above: Arrived Start: 01-02-2024 Influenza vaccination Influenza Vacc ine (#1) [facility] Start: 12-27-2023 End: 12-27-2023 Patient encounter procedure 12/27/2023 9:45 AM EDT Office Visit [facility] [address] [facility] [address] [place] [address] Roya Rodriguez PA [address] [facility] [address] [place] [address] Acute pain of right knee (Primary Dx); Acute pain of left knee [facility] Comment on above: Acute pain of right knee (Primary Dx); Acute pain of left knee Start: 07-25-2022 Screening for malignant neoplasm of colon [facility] Start: 1995 Screening for malignant neoplasm of breast Mammogram [facility] Start: 1955 Medicare Annual Wellness (AWV) Medicare Annual Wellness (AWV) [facility] Start: 1955 Screening for malignant neoplasm of colon [facility] XR Knee - left 1 or 2 Views XR knee 1 or 2 views left Imaging Routine Acute pain of left knee 12/27/2023 9:59 AM EDT [facility] XR Knee - right 1 or 2 Views XR knee 1 or 2 views right Imaging Routine Acute pain of right knee 12/27/2023 9:58 AM EDT [facility] Work Phone: Immunizations Immunization Date Immunization Notes Care Provider Fa gen 01-13-2023 influenza virus vacc ine, unspecified formulation Leonie Lizbeth [facility] 01-19-2022 SARS-CoV-2 (COVID-19 ) [id number].[id number] Leonie Lizbeth [facility] 01-06-2022 influenza virus vacc ine, unspecified formulation Leonie Lizbeth [facility] 01-06-2022 pneumococcal polysaccharide vaccine, 23 valent Leonie Lizbeth [facility] 10-14-2021 SARS-CoV-2 mRNA (hboinxjbyhh-kndv-dfkqkpc ) vaccine Leonie Lizbeth [facility] 02-14-2021 SARS-CoV-2 (COVID-19 ) mRNA BNT-162b2 vax Leonie Lizbeth [facility] Comment on above: Result Comment: 2022: [id number] 01-08-2021 influenza virus vacc ine, unspecified formulation Leonie Lizbeth [facility] 01-08-2021 pneumococcal conjuga te vaccine, 13 valent Leonie Lizbeth [facility] 07-30-2020 SARS-CoV-2 (COVID-19 ) mRNA BNT-162b2 vax Leonie Lizbeth [facility] 07-08-2020 SARS-CoV-2 (COVID-19 ) mRNA BNT-162b2 vax Leonie Lizbeht [facility] 03-10-2020 influenza virus vacc ine, unspecified formulation Leonie Lizbeth [facility] 02-04-2019 influenza virus vacc ine, unspecified formulation Leonie Lizbeth [facility] 02-28-2018 influenza virus vacc ine, unspecified formulation Leonie Lizbeth [facility] Payers Date Payer Category Payer Medicare (Managed Care) [facility] [id number] 2023 Unknown [employer] [id number] 2023-Present [address] [place] [address] [id number] 2023 Unknown [id number] 2020 Medicare MEDICARE MEDICAR E RAILROAD [id number] 2020-Present [employer] MEDICARE [address] [address] [place] [address] Medicare [id number] 1959 Medicare [id number] 1959 Private Health Insurance [id number]. 1955 Unknown [id number] 2.16.840.1.909600.3.579. 2.593 1955 Unknown [id number] 2.16.840.1.397551.3.579. 2.1259 1955 Unknown [id number] 2.16.840.1.086287.3.579. 2.1259 1955 Unknown [id number] 2.16.840.1.237445.3.579. 2.1259 1955 Unknown [id number] 2.16.840.1.972107.3.579. 2.1259 1955 Unknown [id number] 2.16.840.1.206854.3.579. 2.1259 1955 Unknown [id number] 2.16.840.1.783665.3.579. 2.1259 1955 Unknown [id number] 2.16.840.1.952332.3.579. 2.1259 1955 Unknown [id number] 2.16.840.1.282457.3.579. 2.727 1955 Unknown [id number] 2.16.840.1.672388.3.579. 2.727 1955 Unknown [id number] 2.16840.1.952006.3.579. 2.727 1955 Unknown [id number] 2.16.840.1.229954.3.579. 2.727 1955 Unknown [id number] 2.16.840.1.953640.3.579. 2.727 1955 Unknown [id number] 2.16.840.1.949109.3.579. 2.727 1955 Unknown [id number] 2.16840.1.888167.3.579. 2.727 Social History Date Type Detail Facility Start: 02-20-2023 End: 05-08-2024 [facility] Start: 02-20-2023 End: 03-03-2023 Tobacco smoking status Never smoked tobacco (finding) [facility] Tobacco smoking status Never [facility] Start: 02-20-2023 Tobacco use and exposure Smokeless tobacco non-user [facility] Start: 12-27-2023 End: 05-08-2024 Alcoholic beverage intake Current drinker of alcohol (finding) [facility] Start: 02-20-2023 End: 05-08-2024 History of Social function [facility] How often to you hav e a drink containing alcohol? Monthly or less [facility] Healthcare Start: 1955 Sex assigned at Not on file [facility] Clinical Notes 07-17-2022 to 12-07-2024 JAKE Camacho 10/06/2024 8:45 AM JAKE Garcia 05/08/2024 9:15 AM JAKE Burciaga 05/01/2024 8:30 AM JAKE Burciaga - 01/13/2024 1:45 PM EDT Note Date & Type Note Facility 12-07-2024 Note Patient Education Infectious Disease Insect Bite, Adult An insect bite can make your skin red, itchy, and swollen. Some insects can spread disease to people with a bite. However, most insect bites do not lead to disease, and most are not serious. What are the causes? Insects may bite for many reasons, including: ??? Hunger. ??? To defend themselves. Insects that bite include: ??? Spiders. ??? Mosquitoes. ??? Flies. ??? Ticks and fleas. ??? Ants. ??? Kissing bugs. ??? Chiggers. What are the signs or symptoms? Symptoms often last for 2?4 days. However, itching can last up to 10 days. Symptoms include: ??? Itching or pain in the bite area. ??? Redness and swelling in the bite area. ??? An open wound. In rare cases, a person may have a very bad allergic reaction (anaphylactic reaction) to a bite. Symptoms of an anaphylactic reaction may include: ??? Feeling chief engineer drilling and recovery the face (flushed). Your face may turn red. ??? Itchy, red, swollen areas of skin (hives). ??? Swelling of the eyes, lips, face, mouth, tongue, or throat. ??? Trouble with breathing, talking, or swallowing. ??? High-pitched whistling sounds, most often when breathing out (wheezing). ??? Feeling dizzy or light-headed. ??? Fainting. ??? Pain or cramps in your belly (abdomen). ??? Vomiting. ??? Watery poop (diarrhea). How is this treated? Most insect bites are not serious. Symptoms often go away on their own. When treatment is advised, it may include: ??? Putting ice on the bite area. ??? Putting a cream or lotion, like calamine lotion, on the bite area. This helps with itching. ??? Using medicines called antihistamines. ??? You may also need: ? A tetanus shot if you are not up to date. ? An antibiotic cream or medicine. This treatment is needed if the bite area gets infected. Follow these instructions at home: Bite area care ??? Do not scratch the bite area. It may help to cover the bite area with a bandage or close-fitting clothing. ??? Keep the bite area clean and dry. ??? Check the bite area every day for signs of infection. Check for: ? More redness, swelling, or pain. ? Fluid or blood. ? Warmth. ? Pus or a bad smell. ??? Wash your hands often. Managing pain, itching, and swelling ??? You may put any of these on the bite area as told by your doctor: ? A paste made of baking soda and water. ? Cortisone cream. ? Calamine lotion. ??? If told, put ice on the bite area. To do this: ? Put ice in a plastic bag. ? Place a towel between your skin and the bag. ? Leave the ice on for 20 minutes, 2?3 times a day. ? If your skin turns bright red, take off the ice right away to prevent skin damage. The risk of skin damage is higher if you cannot feel pain, heat, or cold. General instructions ??? Apply or take fhhs-run-qihxqtv and prescription medicines only as told by your doctor. ??? If you were prescribed antibiotics, take or apply them as told by your doctor. Do not stop using them even if you start to feel better. How is this prevented? To help you have a lower risk of insect bites: ??? When you are outside, wear clothes that cover your arms and legs. ??? Use insect repellent. The best insect repellents contain one of these: ? DEET. ? Picaridin. ? Oil of lemon eucalyptus (OLE). ? [id number]. ??? Consider spraying your clothing with a pesticide called permethrin. Permethrin helps prevent insect bites. It works for several weeks and for up to 5?6 clothing washes. Do not apply permethrin directly to the skin. ??? If your home windows do not have screens, think about putting some in. ??? If you will be sleeping in an area where there are mosquitoes, consider covering your sleeping area with a mosquito net. Contact a doctor if: ??? You have redness, swelling, or pain in the bite area. ??? You have fluid or blood coming from the bite area. ??? The bite area feels warm to the touch. ??? You have pus or a bad smell coming from the bite area. ??? You have a fever. Get help right away if: ??? You have joint pain. ??? You have a rash. ??? You feel weak or more tired than you normally do. ??? You have neck pain or a headache. ??? You have signs of an anaphylactic reaction. Signs may include: ? Swelling of your eyes, lips, face, mouth, tongue, or throat. ? Feeling chief engineer drilling and recovery the face. ? Itchy, red, swollen areas of skin. ? Trouble with breathing, talking, or swallowing. ? Wheezing. ? Feeling dizzy or light-headed. ? Fainting. ? Pain or cramps in your belly. ? Vomiting or watery poop. These symptoms may be an emergency. Get help right away. Call 911. ??? Do not wait to see if symptoms will go away. ??? Do not drive yourself to the hospital. Summary ??? An insect bite can make your skin red, itchy, and swollen. ??? Treatment is usually not needed. Symptoms often go away on their own. ??? Do not scratch the (more content not included)... [facility] 11-22-2024 Note Nurse Consultation N ote Reason for Visit Urine drug test Assessment/Plan Patient presents for Urine drug test. 1. Medication management (Z79.899: Other exterminator helper (current) drug therapy) Medications Adipex-P 37.5 mg Tab, 37.5 mg= 1 tab(s), Oral, Daily alendronate 70 mg Tab, See Instructions busPIRone 10 mg Tab, 10 mg= 1 tab(s), Oral, TID, PRN escitalopram 10 mg Tab, 20 mg= 2 tab(s), Oral, Daily, 4 refills multivitamin with minerals Xanax 0.25 mg Tab, 0.25 mg= 1 tab(s), Oral, Bedtime Allergies Benadryl (Unknown) HYDROcodone (Unknown) Symbicort (Unknown) Immunizations Vaccine Date Status Comments zoster vaccine, inactivated 01/25/2024 Recorded influenza virus vaccine, inactivated 01/25/2024 Recorded influenza virus vaccine, inactivated 01/13/2023 Recorded SARS-CoV-2 (COVID-19) [id number] 01/19/2022 Recorded pneumococcal 23-valent vaccine 01/06/2022 Recorded influenza virus vaccine, inactivated 01/06/2022 Recorded SARSCoV2 mRNA(frwpfktev-krsu-dgwqsu) vac 10/14/2021 Recorded SARS-CoV-2 (COVID-19) mRNA BNT-162b2 vax 02/14/2021 Recorded 2022-09-04: [id number] pneumococcal 13-valent vaccine 01/08/2021 Recorded influenza virus vaccine, inactivated 01/08/2021 Recorded SARS-CoV-2 (COVID-19) mRNA BNT-162b2 vax 07/30/2020 Recorded SARS-CoV-2 (COVID-19) mRNA BNT-162b2 vax 07/08/2020 Recorded influenza virus vaccine, inactivated 03/10/2020 Recorded influenza virus vaccine, inactivated 02/04/2019 Recorded influenza virus vaccine, inactivated 02/28/2018 Recorded Lab Results Ambulatory Point of Care Results Cocaine Result: Negative (11/22/24 10:11:00) Amphetamines Result: Positive (11/22/24 10:11:00) Barbiturates Result: Negative (11/22/24 10:11:00) MDMA Result: Negative (11/22/24 10:11:00) Methadone Result: Negative (11/22/24 10:11:00) Opiates Result: Negative (11/22/24 10:11:00) Oxycodone Result: Negative (11/22/24 10:11:00) Phencyclidine (PCP) Result: Negative (11/22/24 10:11:00) Tricyclic Antidepressants Result: Negative (11/22/24 10:11:00) Benzodiazepines Quant: Negative (11/22/24 10:11:00) THC Result POC: Negative (11/22/24 10:11:00) [facility] 10-06-2024 History of Present illness Narrative Associated Order(s): L Inj/Asp: R knee Post-Procedure Diagnose(s): Arthritis of right knee Images from the original note were not included. Orthopedic Office note: NAME: Lionel Smith : 1955 EST PT RECHECK RT KNEE- S/P CORTISONE INJ 05/08/24 XRAY RT KNEE [facility] 10/04/24 (CALLED TO PUSH IMAGES) XRAY B/L KNEE 12/27/23 EPIC CORTISONE INJ 05/08/24 She recently received an injection in her left knee, which was successful. She is leaving for [place] at the end of the month and presents today for an injection as an ancillary visit for her being seen. The pain in her right knee is mostly medial, moderate, and worsens with activity. She reports excellent pain relief in the left knee. She is not experiencing any fever or chills. She also reports no numbness or tingling. Knee Musculoskeletal Exam Gait Antalgic: right Inspection [...] B/L KNEE AND LATERAL RT KNEE @ [facility]- PLEASE PUSH IMAGES TO [facility] PACS PLEASE Reason for exam:: RT KNEE [...] was given by the patient. Results Xray [facility] 10/04/24: - Imaging: - X-rays from [place] reviewed showing significant bone on bone articulation medial joint line, no evidence of fracture Weightbearing AP bilateral and right [...] & Plan Right knee arthritis. X-rays from [place] reviewed showing significant zujr-gs-fpgd articulation at the medial joint line with [...] requiring urgent evaluation. Visit was preformed using [employer] pilot dispatcher speech recognition. documented in this encounter [facility] 05-08-2024 History of Present illness Narrative Associated Order(s): L Inj/Asp: R [...] which was successful. She is leaving for [place] at the end of the month and [...] right knee M17.11 Visit was preformed using [employer] pilot dispatcher speech recognition. documented in this encounter [facility] 05-01-2024 History of Present illness Narrative Associated Order(s): L Inj/Asp: L knee Post-Procedure Diagnose(s): Arthritis of left knee; Acute pain of left knee Images from the original note were not included. HISTORY OF PRESENT ILLNESS: EST PT Lionel Smith is an 68 y.o. @ female. (EST PT) RECHECK (L) KNEE ; S/P CORTISONE INJ 01/13/24 (15WKS 4DAYS) LEAVING FOR [place] IN MAY 2024 DEPENDING ON HUSBANDS MRI [...] season. She has plans to go to [place] in May pending her 's health. Pt functioning too well for TKA. Questions answered in laymen terms at the bedside. The diagnosis, home exercise plan and any ongoing restrictions/ recommendations reviewed. If unable to be reached in office, I recommend evaluation at nearest Emergency Room if any symptoms worsened or new symptoms develop for requiring urgent evaluation. documented in this encounter [facility] 01-13-2024 History of Present illness Narrative Associated Order(s): L Inj/Asp: L [...] - WORSE AFTER TAKING A TRIP TO [employer]. NOTES INTERMITTENT DISCOMFORT WITH ACTIVITY / MOVEMENT [...] requiring urgent evaluation. documented in this encounter [facility] 12-27-2023 History of Present illness Narrative Associated Order(s): L Inj/Asp: R knee Post-Procedure Diagnose(s): Arthritis of right knee; Acute pain of right knee Images from the original note were not included. HISTORY OF PRESENT ILLNESS: EST PT Lionel Smith is an 68 y.o. @ female. 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 NOTES INTERMITTENT DISCOMFORT WITH ACTIVITY / MOVEMENT [...] ready for another injury before leaving to [place]. Questions answered in laymen terms at the bedside. The diagnosis, home exercise plan and any ongoing restrictions/ recommendations reviewed. If unable to be reached in office, I recommend evaluation at nearest Emergency Room if any symptoms worsened or new symptoms develop for requiring urgent evaluation. documented in this encounter [facility] 05-19-2023 Evaluation note Encounter Date Diagnosis Assessment Notes May, Hordeolum internum right lower eyelid (ICD-10 - H00.022) Drink plenty fluids, get plenty of rest. Continue home medications. Stop the erythromycin eye ointment and begin the cephalexin ointment, use as directed. Apply warm compresses to your eye. Follow-up with your eye doctor if no improvement in 2 to 3 days [facility] [employer] Other 03-17-2023 Evaluation note* Encounter Date Diagnosis [...] no improvement in 2 to 3 days. [facility] Other Evaluation + Plan note No data available for this section [facility] [employer] Other Evaluation note* Diagnosis Acute pain of left knee- Primary Arthritis of left knee documented in this encounter [facility] HealthcareEvaluation note* Diagnosis Acute pain of right knee- Primary Acute pain of left knee Arthritis of right knee Arthritis of left knee documented in this encounter [facility] HealthcareEvaluation note* Diagnosis Acute pain of left knee- Primary Arthritis of left knee documented in this encounter [facility] HealthcareEvaluation note* Diagnosis Acute pain of right knee- Primary Arthritis of right knee documented in this encounter [facility] HealthcareEvaluation note* Diagnosis Arthritis of right knee- Primary Acute pain of right knee documented in this encounter [facility] HealthcareHistory general Narrative - Reported* Type Description Date Surgical History gallbladder [facility] Other Hospital Discharge instructions No data available for this section [facility] No data available for this section [facility] Summary Purpose Family History No Family History [...] Inj/Asp: R knee Roya Rodriguez PA [address] [facility] [address] [place] [address] Referral ID Status Reason Start Date Expiration Date V isits Requested Visits Authorized [id number] Authorized 12/27/2023 06/24/2024 1 1 Specialty Diagnoses / Procedures Referred By Contac t Referred To Contact Orthopaedic Surgery Diagnoses Arthritis of left knee Procedures L Inj/Asp: L knee Roya Rodriguez PA [address] [facility] [address] [place] [address] Referral ID Status Reason Start Date Expiration Date V isits Requested Visits Authorized [id number] Authorized 01/13/2024 07/11/2024 1 1 Additional Source Comments REASON FOR VISIT (unrecogniz ed section and content) Reason Comments Pain INFORMATION SOURCE (unrecogn ized section and content) DATE CREATED AUTHOR 08/23/[address] [facility] DATE CREATED AUTHOR AUTHOR'S ORGANIZ ATION 10/07/2024 [facility] EPIC DATE CREATED AUTHOR AUTHOR'S ORGANIZ ATION 12/09/2024 [facility] Patient Care team informatio n (unrecognized section and content) Ribbon Weaver Relationship Specialty Start Date End Date Dima Perez MD PCP - General Family Medicine 02/22/23 Elena Salter MD [address] [place] [address] PCP - Devoted 06/03/23 Ribbon Weaver Relationship Specialty Start Date End Date Dima Perez MD PCP - General Family Medicine 02/22/23 Elena Salter MD [address] [place] [address] PCP - Devoted 06/03/23 Ribbon Weaver Relationship Specialty Start Date End Date Dima Perez MD PCP - General Family Medicine 02/22/23 Elena Salter MD [address] [place] [address] PCP - [facility]oted 06/03/23 Ribbon Weaver Relationship Specialty Start Date End Date Dima Perez MD PCP - General Family Medicine 02/22/23 Elena Salter MD [address] [place] [address] PCP - [facility]oted 06/03/23 Ribbon Weaver Relationship Specialty Start Date End Date Dima Perez MD PCP - General Family Medicine 02/22/23 Elena Salter MD [address] [place] [address] PCP - Devoted 06/03/23 Ribbon Weaver Relationship Specialty Start Date End Date Dima Perez MD PCP - General Family Medicine 02/22/23 Elena Salter MD [address] [place] [address] PCP - [facility]oted 06/03/23 FOR RECORDS PERTAINING [...] BE BASED ON THE PRIMARY CLINICAL RECORDS. [facility] [employer] [facility]. provides no warranty or guarantee of the accuracy or completeness of information in this document.
[2025-01-13] MEDS: FLUORESCEIN SODIUM 1 MG STRIP OP (10:22)
[2025-01-13] MEDS: TETRACAINE HCL 0.5% OP SOL 80 DROP/4 ML BOTTLE OP (10:23)
--- NOTE | 2025-01-13 10:43 | ED_ITS ---
HPI - Eye Problem General Chief complaint: Eye Problems Stated complaint: L EYE PAIN/IRRITATION Time Seen by Provider: 01/13/25 09:41 Source: patient Mode of arrival: walk-in History of Present Illness HPI Narrative: The patient presenting with a foreign body sensation in left eye that she woke up with this morning, patient that she cleaned her eyes from make-up last night and that the last thing she remembers there was no fall or trauma or any head injury There was no eye injury as well as no foreign body Patient denies any contact lens use and no history of pain just irritation No discharge no redness and the patient mentioned that she is feeling that the foreign body in the left upper eyelid Related Data Home Medications ?Medication ?Instructions ?Recorded ?Confirmed alendronate 70 mg tablet mg PO 01/13/25 escitalopram oxalate 10 mg tablet mg 01/13/25 phentermine 37.5 mg tablet mg 01/13/25 Previous Rx's ?Medication ?Instructions ?Recorded erythromycin 5 mg/gram (0.5 %) eye 0.5 inch ophthalmic (eye) QID #3.5 01/13/25 ointment grams Allergies Allergy/AdvReac Type Severity Reaction Status Date / Time No Known Drug Allergies Allergy Verified 01/13/25 09:39 Review of Systems ROS Status of ROS 10 or more systems reviewed and unremark able except as noted in history and below PFSH PFSH Social History Little interest or pleasure in doing things: not at all Feeling down, depressed, or hopeless: not at all Exam Narrative Exam Narrative: Nurses notes and vital signs reviewed and patient is not hypoxic. General: Well-appearing and in no apparent distress. Skin: Warm, dry, no pallor noted. Examination:: Right eye examination was benign left eye examination to the patient has no conjunctival erythema, pupils are reactive bilaterally and the patient after applying tetracaine I was able to see very around less than 5 mm remanent of make-up mostly that looked black material at the upper anterior of the upper lid After cleaning that with normal saline and flushing it and also having fluorescein exam there was no abrasion that is obvious Neurological: A&O x4. No cranial nerve dysfunction observed. No truncal ataxia. Moves all extremities. Sensation intact. Psychiatric: Cooperative and interactive. Normal mood and affect. Constitutional Vital Signs, click to edit/add: Last Vital Signs Temp 97.7 F 01/13/25 09:37 Pulse 75 01/13/25 09:37 Resp 18 01/13/25 09:37 BP 168/78 H 01/13/25 09:37 Pulse Ox 99 01/13/25 09:37 O2 Del Method Room Air 01/13/25 09:37 Course Vital Signs Vital signs: Vital Signs Temperature 97.7 F 01/13/25 09:37 Pulse Rate 75 01/13/25 09:37 Respiratory Rate 18 01/13/25 09:37 Blood Pressure 168/78 H 01/13/25 09:37 Pulse Oximetry 99 01/13/25 09:37 Oxygen Delivery Method Room Air 01/13/25 09:37 Temperature 97.7 F 01/13/25 09:37 Pulse Rate 75 01/13/25 09:37 Respiratory Rate 18 01/13/25 09:37 Blood Pressure 168/78 H 01/13/25 09:37 Pulse Oximetry 99 01/13/25 09:37 Oxygen Delivery Method Room Air 01/13/25 09:37 MDM - Eye Problem MDM Narrative Medical decision making narrative: The patient was discharged home with erythromycin after cleaning the eye and removing the remaining of make-up that was in the upper eyelid interior The patient is feeling much better but she was covered with erythromycin for possible abrasion as well as The patient to come back to the ER in case of any worsening of symptoms and she also to follow-up with ophthalmology within few days The patient is to follow up with primary care physician in next 2-3 days or to return to the emergency department should any of the signs or symptoms worsen or new symptoms develop. The patient agrees with the following Diagnosis and Treatment plan and the patient will be discharged home. Discharge Plan Discharge Chief Complaint: Eye Problems Clinical Impression: Foreign body in eye Patient Disposition: Home, Self-Care Time of Disposition Decision: 10:43 Condition: Good Prescriptions / Home Meds: New erythromycin 5 mg/gram (0.5 %) ointment 0.5 inch ophthalmic (eye) QID Qty: 3.5 0RF Rx Instructions: apply to the left eye No Action alendronate 70 mg tablet PO phentermine 37.5 mg tablet escitalopram oxalate 10 mg tablet Print Language: [place]an Instructions: Eye Foreign Body (ED) Referrals: PRACHI GIBSON [Primary Care Provider, HUMANITIES INSTRUCTOR] - 1 week Discharge Date/Time: 01/13/25 11:00
== END 2025-01-13 11:00 | disposition home or self-care (01) ==
PROVIDERS: Emergency Provider Emergency Medicine; Family Provider Obstetrics & Gynecology; PCP Nurse Practitioner
DX: T15.92XA Foreign body on external eye, part unspecified, left eye, initial encounter (principal); W44.8XXA Other foreign body entering into or through a natural orifice, initial encounter
CPT/HCPCS: 99283